=== PATIENT | female | born 1950 | race Caucasian/White ===

== ENCOUNTER 2018-10-28 06:10 | Inpatient (IN) ==
[2018-10-28] MEDS ORDERED: PROMETHAZINE 25 MG/1 ML VIAL IM PRN (08:42)
[2018-10-28] MEDS ORDERED: ONDANSETRON 4 MG/2 ML VIAL IV PRN (08:42)
[2018-10-28] MEDS ORDERED: ACETAMINOPHEN 325 MG TABLET PO PRN (08:42)
[2018-10-28] MEDS ORDERED: MORPHINE 4 MG/1 ML VIAL IV PRN (08:42)
[2018-10-28 09:09] LABS: Basophils % 0.1 % (0.0-0.8); Hematocrit 32.8 VOL% (35.7-47.0); Hemoglobin 10.9 GM/DL (12.0-16.0); Immature Granulocytes % 0.7 %; Immature Granulocytes Absolute 0.06 #; Lymphocytes # 0.8 10*3/uL (1.4-4.0); Lymphocytes % 9.4 % (21.3-54.2); Mean Corpuscular HGB Conc 33.2 GM/DL (32-36); Mean Corpuscular Hemoglobin 38 PG (27-34); Mean Corpuscular Volume 113.5 FL (87-102); Mean Platelet Volume 9.6 FL (9.6-12.0); Monocytes # 0.4 10*3/uL (0.11-0.8); Monocytes % 5.1 % (1.7-12.7); Neutrophils # 7.1 10*3/uL (1.4-7.4); Neutrophils % 84.7 % (38.7-73.9); Platelet Count 105 T/CUMM (130-400); Red Blood Count 2.89 MC/CUMM (3.8-5.5); White Blood Count 8.4 T/CUMM (4-12)
[2018-10-28 09:31] LABS: INR 1.9; PT Patient Result 20.4 SECS
[2018-10-28 09:44] LABS: Bilirubin,Total 1.7 MG/DL (0.2-1.0); Calcium 9.1 MG/DL (8.5-10.1); Osmolality,Calculated 279.4 MOS/KG (273-304); Potassium 3.9 MMOL/L (3.5-5.1); Risk Ratio 2.07; Thyroid Stimulating Hormone 0.763 uIU/ml (0.358-3.74); Total Protein 6.8 G/DL (6.4-8.3); VLDL CHOLESTEROL 11.2 MG/DL
[2018-10-28] MEDS ORDERED: SODIUM CHLORIDE 0.9% 1,000 ML IV ONE (11:20)
[2018-10-28 13:26] LABS: Folate 12.2 NG/ML (5.4-24.0)
[2018-10-28 13:37] LABS: Amorphous Crystals,Urine Occasional /HPF (Few); Apearance,Urine Slightly Hazy (Clear); Bilirubin,Urine Negative (Negative); Blood, Urine Large mg/dL (Negative); Glucose,Urine (UA) Negative (Negative); Ketones,Urine Negative (Negative); Mucus,Urine Occasional /LPF (Occasional); Nitrite,Urine Positive (Negative); Protein,Urine Negative; Urine Color Yellow (Yellow); WBC,Urine 43 /HPF (0-6)
[2018-10-28] MEDS: CYANOCOBALAMIN 1000 MCG/1 ML VIAL IM SCH (14:47)
[2018-10-28] MEDS: PANTOPRAZOLE 40 MG TABLET PO SCH (14:47)
[2018-10-28] MEDS: WARFARIN 5 MG TABLET PO SCH (14:47)
[2018-10-28] MEDS ORDERED: POLYETHYLENE GLYCOL POWDER 17 GM PACK PO PRN (14:49)
[2018-10-28] MEDS: traZODone 50 MG TABLET PO PRN (20:59)
[2018-10-29 04:51] LABS: INR 1.6; PT Patient Result 17.1 SECS
[2018-10-29 04:53] LABS: Basophils % 0.2 % (0.0-0.8); Eosinophils # 0.1 10*3/uL (0.0-0.87); Hematocrit 27.3 VOL% (35.7-47.0); Immature Granulocytes % 0.2 %; Immature Granulocytes Absolute 0.01 #; Lymphocytes # 1.9 10*3/uL (1.4-4.0); Lymphocytes % 32.8 % (21.3-54.2); Mean Corpuscular Hemoglobin 39 PG (27-34); Mean Corpuscular Volume 116.7 FL (87-102); Mean Platelet Volume 10.3 FL (9.6-12.0); Monocytes # 0.4 10*3/uL (0.11-0.8); Monocytes % 7.3 % (1.7-12.7); Neutrophils # 3.5 10*3/uL (1.4-7.4); Neutrophils % 58.5 % (38.7-73.9); Red Blood Count 2.34 MC/CUMM (3.8-5.5); Red Cell Distribution Width 14.4 % (9.3-17.3); White Blood Count 5.9 T/CUMM (4-12)
[2018-10-29 04:57] LABS: Platelet Count 98 T/CUMM (130-400)
[2018-10-29 05:12] LABS: Albumin 2.5 G/DL (3.4-5.0); Bilirubin,Total 1.2 MG/DL (0.2-1.0); Calcium 8.4 MG/DL (8.5-10.1); Osmolality,Calculated 285.8 MOS/KG (273-304); Potassium 4.2 MMOL/L (3.5-5.1); Total Protein 5.9 G/DL (6.4-8.3)
[2018-10-29] MEDS ORDERED: LEVOFLOXACIN INJ 500 MG in PREMIX 1 EACH IV ONE (07:20)
[2018-10-29] MEDS ORDERED: Ibandronate Sodium [Boniva] 150 MG PO SCH (09:00)
[2018-10-29] MEDS: PANTOPRAZOLE 40 MG TABLET PO SCH (09:01)
[2018-10-29] MEDS: METOPROLOL SUCCINATE XL 50 MG TABLET PO SCH (09:01)
[2018-10-29] MEDS: ASPIRIN EC 81 MG TABLET PO SCH (09:01)
[2018-10-29] MEDS: SIMVASTATIN 40 MG TABLET PO SCH (09:01)
[2018-10-29] MEDS: FUROSEMIDE 40 MG TABLET PO SCH (09:01)
[2018-10-29] MEDS: POTASSIUM CHLORIDE 20 MEQ TABLET PO SCH (09:02)
[2018-10-29] MEDS: CYANOCOBALAMIN 1000 MCG/1 ML VIAL IM SCH (09:04)
[2018-10-29] MEDS: WARFARIN 5 MG TABLET PO SCH (13:08)
[2018-10-29] MEDS: PIPERACILLIN/TAZOBACTAM 3,375 MG in SODIUM CHLORIDE 0.9% 100 ML IV SCH ×2 (13:08→21:22)
[2018-10-29] MEDS: ENOXAPARIN 80 MG/0.8 ML SYRINGE SUBCUT SCH ×2 (13:08→21:29)
[2018-10-29] MEDS: traZODone 50 MG TABLET PO PRN (21:21)
[2018-10-30] MEDS: PIPERACILLIN/TAZOBACTAM 3,375 MG in SODIUM CHLORIDE 0.9% 100 ML IV SCH (05:05)
[2018-10-30] MEDS: POTASSIUM CHLORIDE 20 MEQ TABLET PO SCH (08:40)
[2018-10-30] MEDS: FUROSEMIDE 40 MG TABLET PO SCH (08:41)
[2018-10-30] MEDS: METOPROLOL SUCCINATE XL 50 MG TABLET PO SCH (08:41)
[2018-10-30] MEDS: ASPIRIN EC 81 MG TABLET PO SCH (08:41)
[2018-10-30] MEDS: PANTOPRAZOLE 40 MG TABLET PO SCH (08:41)
[2018-10-30] MEDS: SIMVASTATIN 40 MG TABLET PO SCH (08:41)
[2018-10-30] MEDS: CYANOCOBALAMIN 1000 MCG/1 ML VIAL IM SCH (08:51)
[2018-10-30] MEDS: ENOXAPARIN 80 MG/0.8 ML SYRINGE SUBCUT SCH (10:52)
[2018-10-30] MEDS: WARFARIN 5 MG TABLET PO SCH (12:20)
[2018-10-30 12:31] VITALS: BP 115/63
[2018-10-31] MEDS ORDERED: WARFARIN 5 MG TABLET PO SCH (12:33)
== END 2018-10-30 12:38 | disposition home or self-care (01) | DRG 872 ==
LOC: N.TELEN 08:24 → SUATTDRO 08:24
PROVIDERS: ADMIT Internal Medicine; ATTEND Internal Medicine

== ENCOUNTER 2021-12-26 23:58 | Observation (INO) ==
[2021-12-27] MEDS ORDERED: DILTIAZEM 50 MG/10 ML VIAL IV STA (00:26)
[2021-12-27] MEDS ORDERED: SODIUM CHLORIDE 0.9% 500 ML IV STA (00:26)
[2021-12-27] MEDS ORDERED: DILTIAZEM 25 MG/5 ML VIAL IV ONE (00:35)
[2021-12-27 00:43] LABS: Bacteria,Urine Many /HPF (Few); Mucus,Urine Occasional /LPF (Occasional); Squamous Epithelial Cell,Urine Occasional /HPF (0-10)
[2021-12-27 00:45] LABS: Bilirubin,Urine Negative (Negative); Glucose,Urine (UA) Negative (Negative); Ketones,Urine Negative (Negative); Nitrite,Urine Positive (Negative); Protein,Urine Trace mg/dL (Negative); Urine Appearance Slightly Cloudy (Clear); Urine Color Yellow (Yellow); Urine Specific Gravity 1.015 (1.001-1.035)
[2021-12-27 00:46] LABS: Basophils % 0.1 % (0.0-0.8); Eosinophils % 0.3 % (0.00-10.9); Hematocrit 34.5 VOL% (35.7-47.0); Hemoglobin 12.1 GM/DL (12.0-16.0); Immature Granulocytes % 0.3 %; Immature Granulocytes Absolute 0.02 #; Lymphocytes # 0.6 10*3/uL (1.4-4.0); Lymphocytes % 8.8 % (21.3-54.2); Mean Corpuscular HGB Conc 35.1 GM/DL (32-36); Mean Corpuscular Volume 118.2 FL (87-102); Monocytes # 0.2 10*3/uL (0.11-0.8); Monocytes % 2.9 % (1.7-12.7); Neutrophils % 87.6 % (38.7-73.9); Platelet Count 126 T/CUMM (130-400); Red Blood Count 2.92 MC/CUMM (3.8-5.5); Red Cell Distribution Width 13.8 % (9.3-17.3); White Blood Count 6.8 T/CUMM (4-12)
[2021-12-27 00:46] LABS: Blood, Urine Small mg/dL (Negative); Urine Urobilinogen 0.3 eU/dL (<2.0)
[2021-12-27 00:59] LABS: INR 2.7
[2021-12-27 01:11] LABS: Alanine Aminotransferase 12 U/L (13-56); Albumin 3.3 G/DL (3.4-5.0); Alkaline Phosphatase 93 U/L (45-117); Aspartate Amino Transferase 23 U/L (0-37); Blood Urea Nitrogen 11 MG/DL (7-18); Calcium 9.1 MG/DL (8.5-10.1); Carbon Dioxide 24 MMOL/L (21-32); Chloride 107 MMOL/L (98-107); Estimated Glom Filtration Rate 69 ML/MIN; Glucose 142 MG/DL (74-106); Osmolality,Calculated 275.7 MOS/KG (273-304); Potassium 3.4 MMOL/L (3.5-5.1); Sodium 138 MMOL/L (136-145); Total Protein 7.2 G/DL (6.4-8.2)
[2021-12-27 01:12] LABS: Lactic Acid 1.7 MMOL/L (0.4-2.0)
[2021-12-27] MEDS ORDERED: DOXYCYCLINE HYCLATE INJ 100 MG in SODIUM CHLORIDE 0.9% 100 ML IV STA (01:21)
[2021-12-27 01:40] LABS: Platelet Estimate Decreased
[2021-12-27] MEDS ORDERED: hydrALAZINE 20 MG/1 ML VIAL IV PRN (02:06)
[2021-12-27] MEDS ORDERED: ACETAMINOPHEN 325 MG TABLET PO PRN (02:06)
[2021-12-27] MEDS ORDERED: ONDANSETRON 4 MG/2 ML VIAL IV PRN (02:06)
[2021-12-27] MEDS ORDERED: GLUCAGON 1 MG VIAL IM PRN (02:06)
[2021-12-27] MEDS ORDERED: DEXTROSE 10% 250 ML BAG IV PRN (02:16)
[2021-12-27] MEDS ORDERED: POTASSIUM CHLORIDE 20 MEQ TABLET PO ONE (02:20)
[2021-12-27] MEDS: METOPROLOL SUCCINATE XL 25 MG TABLET PO SCH ×2 (03:15→09:26)
[2021-12-27] MEDS ORDERED: FUROSEMIDE 40 MG/4 ML VIAL IV ONE (07:09)
[2021-12-27 09:17] LABS: Arterial Base Excess iSTAT -1 MMOL/L (-2.5-2.5); Arterial Bicarbonate iSTAT 23.6 MMOL/L (20-26); Arterial O2 Saturation iSTAT 99 % (95-100); Arterial PCO2 iSTAT 36 MM HG (35-48); Arterial PO2 iSTAT 128 MM HG (80-95); Arterial Total CO2 iSTAT 25 MMO/L (23-27); Arterial pH iSTAT 7.422 (7.35-7.45)
[2021-12-27] MEDS: ASPIRIN EC 81 MG TABLET PO SCH (09:26)
[2021-12-27] MEDS: PANTOPRAZOLE 40 MG TABLET PO SCH (09:26)
[2021-12-27] MEDS ORDERED: DOXYCYCLINE HYCLATE INJ 100 MG in SODIUM CHLORIDE 0.9% 100 ML IV SCH (13:00)
[2021-12-27] MEDS: DOXYCYCLINE HYCLATE 100 MG CAPSULE PO SCH ×2 (14:14→20:53)
[2021-12-27] MEDS ORDERED: SIMVASTATIN 20 MG TABLET PO SCH (21:00)
[2021-12-28 06:02] LABS: Basophils % 0.2 % (0.0-0.8); Eosinophils # 0.1 10*3/uL (0.0-0.87); Eosinophils % 1.2 % (0.00-10.9); Hematocrit 29.1 VOL% (35.7-47.0); Hemoglobin 9.8 GM/DL (12.0-16.0); Immature Granulocytes % 0.4 %; Immature Granulocytes Absolute 0.02 #; Mean Corpuscular HGB Conc 33.7 GM/DL (32-36); Mean Corpuscular Volume 121.3 FL (87-102); Mean Platelet Volume 10.2 FL (9.6-12.0); Monocytes # 0.5 10*3/uL (0.11-0.8); Monocytes % 9.1 % (1.7-12.7); Neutrophils % 49.1 % (38.7-73.9); Platelet Count 99 T/CUMM (130-400); Red Cell Distribution Width 13.9 % (9.3-17.3)
[2021-12-28 06:15] LABS: Calcium 8.8 MG/DL (8.5-10.1); Osmolality,Calculated 277.5 MOS/KG (273-304); Potassium 3.9 MMOL/L (3.5-5.1)
[2021-12-28 06:25] LABS: Macrocytosis 1+
[2021-12-28 07:35] VITALS: BP 133/44
[2021-12-28] MEDS: ASPIRIN EC 81 MG TABLET PO SCH (08:09)
[2021-12-28] MEDS: PANTOPRAZOLE 40 MG TABLET PO SCH (08:09)
[2021-12-28] MEDS: METOPROLOL SUCCINATE XL 25 MG TABLET PO SCH (08:09)
[2021-12-28] MEDS: DOXYCYCLINE HYCLATE 100 MG CAPSULE PO SCH (08:09)
[2021-12-28] MEDS ORDERED: WARFARIN 5 MG TABLET PO SCH (09:00)
[2021-12-28] MEDS ORDERED: CYANOCOBALAMIN 1000 MCG/1 ML VIAL SUBCUT SCH (11:00)
[2021-12-31] MEDS ORDERED: WARFARIN 2.5 MG TABLET PO SCH (09:00)
== END 2021-12-28 11:26 | disposition home or self-care (01) ==
LOC: EDUNIT# → EDBD → N.EDINP 23:58 → N.ED 23:58 → N.EDINP 12-27 12:42 → N.5E 12-27 12:56
PROVIDERS: ADMIT Internal Medicine Geriatric Medicine; ATTEND Internal Medicine Geriatric Medicine

== ENCOUNTER 2022-01-10 12:29 | Inpatient (IN) ==
[2022-01-10] MEDS ORDERED: ASPIRIN 325 MG TABLET PO STA (13:34)
[2022-01-10] MEDS ORDERED: DILTIAZEM 50 MG/10 ML VIAL IV STA (13:34)
[2022-01-10 13:39] LABS: Basophils % 0.3 % (0.0-0.8); Eosinophils # 0.1 10*3/uL (0.0-0.87); Eosinophils % 1.7 % (0.00-10.9); Hematocrit 20.9 VOL% (35.7-47.0); Hemoglobin 6.9 GM/DL (12.0-16.0); Immature Granulocytes % 0.3 %; Immature Granulocytes Absolute 0.01 #; Lymphocytes # 1.4 10*3/uL (1.4-4.0); Lymphocytes % 47.3 % (21.3-54.2); Mean Corpuscular Volume 123.7 FL (87-102); Mean Platelet Volume 9.2 FL (9.6-12.0); Monocytes # 0.1 10*3/uL (0.11-0.8); Monocytes % 3.7 % (1.7-12.7); Neutrophils % 46.7 % (38.7-73.9); Platelet Count 87 T/CUMM (130-400); Red Blood Count 1.69 MC/CUMM (3.8-5.5); Red Cell Distribution Width 13.4 % (9.3-17.3)
[2022-01-10 14:06] LABS: Burr Cells Slight; Ovalocytes Few
[2022-01-10 14:07] LABS: Polychromasia Slight
[2022-01-10] MEDS ORDERED: DILTIAZEM 25 MG/5 ML VIAL IV ONE (14:07)
[2022-01-10 14:08] LABS: Anisocytosis Slight; Platelet Estimate Adequate
[2022-01-10] MEDS ORDERED: FUROSEMIDE 40 MG/4 ML VIAL IV STA (14:16)
[2022-01-10 15:13] LABS: Alanine Aminotransferase < 9 U/L (13-56); Albumin 1.5 G/DL (3.4-5.0); Alkaline Phosphatase 36 U/L (45-117); Aspartate Amino Transferase 9 U/L (0-37); Bilirubin,Total < 0.39 MG/DL (0.20-1.00); Blood Urea Nitrogen 4 MG/DL (7-18); Calcium 8.5 MG/DL (8.5-10.1); Carbon Dioxide 15 MMOL/L (21-32); Chloride 131 MMOL/L (98-107); Estimated Glom Filtration Rate 86 ML/MIN; Glucose 53 MG/DL (74-106); Osmolality,Calculated 294.7 MOS/KG (273-304); Sodium 152 MMOL/L (136-145)
[2022-01-10] MEDS ORDERED: POTASSIUM CHLORIDE 20 MEQ TABLET PO STA (15:22)
[2022-01-10] MEDS ORDERED: hydrALAZINE 20 MG/1 ML VIAL IV PRN (15:47)
[2022-01-10] MEDS ORDERED: MORPHINE 2 MG/1 ML SYRINGE IV PRN (15:47)
[2022-01-10] MEDS ORDERED: GLUCAGON 1 MG VIAL IM PRN (15:47)
[2022-01-10] MEDS ORDERED: ONDANSETRON 4 MG/2 ML VIAL IV PRN (15:47)
[2022-01-10] MEDS ORDERED: DEXTROSE 10% 250 ML BAG IV PRN (15:57)
[2022-01-10] MEDS ORDERED: POTASSIUM CHLORIDE 20 MEQ TABLET PO SCH (16:00)
[2022-01-10] MEDS ORDERED: SODIUM CHLOR 0.9% KCL 40 MEQ 40 MEQ/1,000 ML BAG IV SCH (16:00)
[2022-01-10 16:10] LABS: INR 2.6; PT Patient Result 26.6 SECS (10.5-12.0)
[2022-01-10 16:15] LABS: Risk Ratio 2.25; Thyroid Stimulating Hormone 2.54 uIU/ml (0.358-3.74); VLDL Cholesterol 24.2 MG/DL
[2022-01-10 16:22] LABS: % Iron Saturation 22.3 % (18-50); Ferritin 207.8 ng/mL (8-252)
[2022-01-10] MEDS ORDERED: DEXTROSE 5% 1,000 ML IV SCH (17:00)
[2022-01-10 17:03] LABS: Basophils % 0.2 % (0.0-0.8); Eosinophils # 0.1 10*3/uL (0.0-0.87); Eosinophils % 1.3 % (0.00-10.9); Hematocrit 36.8 VOL% (35.7-47.0); Hemoglobin 12.3 GM/DL (12.0-16.0); Immature Granulocytes % 0.2 %; Immature Granulocytes Absolute 0.01 #; Lymphocytes # 2.3 10*3/uL (1.4-4.0); Lymphocytes % 42.7 % (21.3-54.2); Mean Corpuscular HGB Conc 33.4 GM/DL (32-36); Mean Corpuscular Volume 118.7 FL (87-102); Monocytes # 0.2 10*3/uL (0.11-0.8); Monocytes % 3.8 % (1.7-12.7); Neutrophils % 51.8 % (38.7-73.9); Platelet Count 147 T/CUMM (130-400); Red Cell Distribution Width 13.4 % (9.3-17.3); White Blood Count 5.3 T/CUMM (4-12)
[2022-01-10 18:09] LABS: Ovalocytes Few; Platelet Estimate Normal
[2022-01-10 20:18] LABS: Calcium 9.1 MG/DL (8.5-10.1); Osmolality,Calculated 281.1 MOS/KG (273-304); Potassium 4.7 MMOL/L (3.5-5.1)
[2022-01-10] MEDS: SIMVASTATIN 20 MG TABLET PO SCH (20:20)
[2022-01-10] MEDS: GABAPENTIN 100 MG CAPSULE PO SCH (20:20)
[2022-01-10] MEDS: MUPIROCIN 2% OINT 22 GM TUBE TOP SCH (20:21)
[2022-01-10] MEDS: ACETAMINOPHEN 325 MG TABLET PO PRN (21:16)
[2022-01-11 05:33] LABS: Basophils % 0.5 % (0.0-0.8); Eosinophils # 0.1 10*3/uL (0.0-0.87); Eosinophils % 1.9 % (0.00-10.9); Hematocrit 34.9 VOL% (35.7-47.0); Hemoglobin 11.9 GM/DL (12.0-16.0); Immature Granulocytes % 0.2 %; Immature Granulocytes Absolute 0.01 #; Lymphocytes % 47.2 % (21.3-54.2); Mean Corpuscular HGB Conc 34.1 GM/DL (32-36); Mean Corpuscular Volume 118.3 FL (87-102); Mean Platelet Volume 10.1 FL (9.6-12.0); Monocytes # 0.2 10*3/uL (0.11-0.8); Monocytes % 4.9 % (1.7-12.7); Neutrophils % 45.3 % (38.7-73.9); Platelet Count 126 T/CUMM (130-400); Red Blood Count 2.95 MC/CUMM (3.8-5.5); Red Cell Distribution Width 13.2 % (9.3-17.3); White Blood Count 4.3 T/CUMM (4-12)
[2022-01-11 05:48] LABS: Calcium 9.2 MG/DL (8.5-10.1); Osmolality,Calculated 279.3 MOS/KG (273-304); Potassium 4.1 MMOL/L (3.5-5.1)
[2022-01-11] MEDS ORDERED: DIGOXIN 0.5 MG/2 ML AMP IV ONE (09:22)
[2022-01-11] MEDS ORDERED: FUROSEMIDE 40 MG/4 ML VIAL IV ONE (09:32)
[2022-01-11] MEDS: PANTOPRAZOLE 40 MG TABLET PO SCH (10:00)
[2022-01-11] MEDS: WARFARIN 5 MG TABLET PO SCH (10:00)
[2022-01-11] MEDS: METOPROLOL SUCCINATE XL 25 MG TABLET PO SCH (10:00)
[2022-01-11 13:45] LABS: Basophils % 0.2 % (0.0-0.8); Eosinophils # 0.1 10*3/uL (0.0-0.87); Eosinophils % 1.2 % (0.00-10.9); Hematocrit 34.9 VOL% (35.7-47.0); Hemoglobin 12.1 GM/DL (12.0-16.0); Immature Granulocytes % 0.2 %; Immature Granulocytes Absolute 0.01 #; Lymphocytes # 1.7 10*3/uL (1.4-4.0); Mean Corpuscular HGB Conc 34.7 GM/DL (32-36); Mean Corpuscular Volume 117.1 FL (87-102); Mean Platelet Volume 10.4 FL (9.6-12.0); Monocytes # 0.2 10*3/uL (0.11-0.8); Monocytes % 4.7 % (1.7-12.7); Neutrophils % 59.7 % (38.7-73.9); Platelet Count 144 T/CUMM (130-400); Red Blood Count 2.98 MC/CUMM (3.8-5.5); Red Cell Distribution Width 13.2 % (9.3-17.3); White Blood Count 5.1 T/CUMM (4-12)
[2022-01-11] MEDS: MUPIROCIN 2% OINT 22 GM TUBE TOP SCH ×2 (13:48→21:45)
[2022-01-11 14:00] LABS: Osmolality,Calculated 276.5 MOS/KG (273-304); Potassium 4.1 MMOL/L (3.5-5.1)
[2022-01-11] MEDS: ACETAMINOPHEN 325 MG TABLET PO PRN (18:41)
[2022-01-11] MEDS: SIMVASTATIN 20 MG TABLET PO SCH (20:48)
[2022-01-11] MEDS: GABAPENTIN 100 MG CAPSULE PO SCH (20:48)
[2022-01-12 04:51] LABS: Basophils % 0.2 % (0.0-0.8); Eosinophils # 0.1 10*3/uL (0.0-0.87); Eosinophils % 1.6 % (0.00-10.9); Hematocrit 36.2 VOL% (35.7-47.0); Hemoglobin 12.4 GM/DL (12.0-16.0); Immature Granulocytes % 0.2 %; Immature Granulocytes Absolute 0.01 #; Lymphocytes # 2.3 10*3/uL (1.4-4.0); Lymphocytes % 45.5 % (21.3-54.2); Mean Corpuscular HGB Conc 34.3 GM/DL (32-36); Mean Corpuscular Volume 116.8 FL (87-102); Mean Platelet Volume 9.8 FL (9.6-12.0); Monocytes # 0.3 10*3/uL (0.11-0.8); Monocytes % 5.8 % (1.7-12.7); Neutrophils % 46.7 % (38.7-73.9); Platelet Count 142 T/CUMM (130-400)
[2022-01-12 05:10] LABS: Calcium 9.3 MG/DL (8.5-10.1); Osmolality,Calculated 275.5 MOS/KG (273-304); Potassium 4.9 MMOL/L (3.5-5.1)
[2022-01-12] MEDS ORDERED: AMIODARONE INJ 150 MG in DEXTROSE 5% 100 ML IV ONE (08:08)
[2022-01-12] MEDS ORDERED: AMIODARONE INJ 450 MG in DEXTROSE 5% 241 ML IV SCH (08:30)
[2022-01-12] MEDS: WARFARIN 5 MG TABLET PO SCH (09:20)
[2022-01-12] MEDS: PANTOPRAZOLE 40 MG TABLET PO SCH (09:20)
[2022-01-12] MEDS: METOPROLOL SUCCINATE XL 25 MG TABLET PO SCH (09:20)
[2022-01-12] MEDS: MUPIROCIN 2% OINT 22 GM TUBE TOP SCH ×2 (09:28→21:17)
[2022-01-12 13:25] LABS: INR 2.1; PT Patient Result 21.9 SECS (10.5-12.0)
[2022-01-12] MEDS: FUROSEMIDE 40 MG TABLET PO SCH (17:07)
[2022-01-12] MEDS: AMIODARONE INJ 450 MG in DEXTROSE 5% 241 ML IV SCH (17:08)
[2022-01-12] MEDS: ACETAMINOPHEN 325 MG TABLET PO PRN (21:17)
[2022-01-12] MEDS: SIMVASTATIN 20 MG TABLET PO SCH (21:17)
[2022-01-12] MEDS: GABAPENTIN 100 MG CAPSULE PO SCH (21:17)
[2022-01-13 06:19] LABS: Basophils % 0.2 % (0.0-0.8); Eosinophils # 0.1 10*3/uL (0.0-0.87); Eosinophils % 2.5 % (0.00-10.9); Hematocrit 33.8 VOL% (35.7-47.0); Hemoglobin 11.6 GM/DL (12.0-16.0); Immature Granulocytes % 0.2 %; Immature Granulocytes Absolute 0.01 #; Lymphocytes # 2.1 10*3/uL (1.4-4.0); Lymphocytes % 45.1 % (21.3-54.2); Mean Corpuscular HGB Conc 34.3 GM/DL (32-36); Mean Platelet Volume 10.1 FL (9.6-12.0); Monocytes # 0.3 10*3/uL (0.11-0.8); Monocytes % 7.2 % (1.7-12.7); Neutrophils % 44.8 % (38.7-73.9); Platelet Count 133 T/CUMM (130-400); Red Blood Count 2.89 MC/CUMM (3.8-5.5); White Blood Count 4.7 T/CUMM (4-12)
[2022-01-13 06:25] LABS: INR 2.2; PT Patient Result 23.1 SECS (10.5-12.0)
[2022-01-13 06:34] LABS: Calcium 9.1 MG/DL (8.5-10.1); Osmolality,Calculated 279.3 MOS/KG (273-304); Potassium 3.2 MMOL/L (3.5-5.1)
[2022-01-13] MEDS ORDERED: POTASSIUM CHLORIDE 20 MEQ TABLET PO ONE (07:08)
[2022-01-13] MEDS: AMIODARONE INJ 450 MG in DEXTROSE 5% 241 ML IV SCH (08:34)
[2022-01-13] MEDS ORDERED: ASCORBIC ACID 500 MG TABLET PO SCH (09:00)
[2022-01-13] MEDS ORDERED: AMIODARONE 200 MG TABLET PO SCH (09:00)
[2022-01-13] MEDS: WARFARIN 5 MG TABLET PO SCH (09:02)
[2022-01-13] MEDS: PANTOPRAZOLE 40 MG TABLET PO SCH (09:03)
[2022-01-13] MEDS: FUROSEMIDE 40 MG TABLET PO SCH (09:03)
[2022-01-13] MEDS: METOPROLOL SUCCINATE XL 25 MG TABLET PO SCH (09:03)
[2022-01-13] MEDS: MUPIROCIN 2% OINT 22 GM TUBE TOP SCH (09:05)
[2022-01-13 11:45] VITALS: BP 133/74
[2022-01-14] MEDS ORDERED: WARFARIN 2.5 MG TABLET PO SCH (09:00)
== END 2022-01-13 16:14 | disposition home or self-care (01) | DRG 308 ==
LOC: EDBD → EDUNIT# → N.ED 12:29 → N.EDINP 15:47 → SUATTDRO 15:47 → N.EDINP 19:22 → N.TELES 19:30
PROVIDERS: ADMIT Internal Medicine; ATTEND Internal Medicine

== ENCOUNTER 2022-06-29 15:31 | Inpatient (IN) ==
[2022-06-29] MEDS ORDERED: ONDANSETRON 4 MG/2 ML VIAL IV STA (15:55)
[2022-06-29] MEDS ORDERED: HYDROmorphone 1 MG/1 ML SYRINGE IV STA (15:55)
[2022-06-29 16:43] LABS: Eosinophils % 0.7 % (0.00-10.9); Hematocrit 28.8 VOL% (35.7-47.0); Hemoglobin 9.8 GM/DL (12.0-16.0); Immature Granulocytes % 0.7 %; Immature Granulocytes Absolute 0.04 #; Lymphocytes # 1.4 10*3/uL (1.4-4.0); Lymphocytes % 24.1 % (21.3-54.2); Mean Corpuscular Volume 116.6 FL (87-102); Monocytes # 0.4 10*3/uL (0.11-0.8); Monocytes % 6.1 % (1.7-12.7); NRBC # 0.02 10*3/uL; Neutrophils % 68.4 % (38.7-73.9); Platelet Count 143 T/CUMM (130-400); Red Blood Count 2.47 MC/CUMM (3.8-5.5); Red Cell Distribution Width 15.6 % (9.3-17.3); White Blood Count 5.7 T/CUMM (4-12)
[2022-06-29 16:54] LABS: INR 2.3; PT Patient Result 23.6 SECS (10.1-12.1); Partial Thromboplastin Time 32.8 SECS (23.7-32.9)
[2022-06-29] MEDS ORDERED: ONDANSETRON 4 MG/2 ML VIAL IV PRN (16:58)
[2022-06-29 17:05] LABS: Albumin 2.7 G/DL (3.4-5.0); Bilirubin,Total 0.6 MG/DL (0.20-1.00); Osmolality,Calculated 280.4 MOS/KG (273-304); Potassium 3.7 MMOL/L (3.5-5.1); Total Protein 6.2 G/DL (6.4-8.2)
[2022-06-29] MEDS ORDERED: SODIUM CHLORIDE 0.9% 1,000 ML IV PRN (17:07)
[2022-06-29] MEDS ORDERED: SODIUM CHLORIDE 0.9% 1,000 ML IV SCH (17:30)
[2022-06-29 17:31] LABS: Bilirubin,Urine Negative (Negative); Blood, Urine Negative (Negative); Glucose,Urine (UA) Negative (Negative); Ketones,Urine Negative (Negative); Mucus,Urine Occasional /LPF (Occasional); Nitrite,Urine Negative (Negative); Protein,Urine Negative (Negative); RBC,Urine 1 /HPF (0-4); Urine Appearance CLEAR (Clear); Urine Color Yellow (Yellow); Urine Specific Gravity 1.018 (1.001-1.035); Urine Urobilinogen < 2.0 eU/dL (<2.0)
[2022-06-29] MEDS: ENOXAPARIN 100 MG/ML SYRINGE SUBCUT SCH (17:38)
[2022-06-29] MEDS: MORPHINE 2 MG/1 ML SYRINGE IV PRN ×2 (19:03→22:47)
[2022-06-29] MEDS: GABAPENTIN 100 MG CAPSULE PO SCH (20:48)
[2022-06-29] MEDS: AMIODARONE 200 MG TABLET PO SCH (20:48)
[2022-06-30] MEDS: MORPHINE 2 MG/1 ML SYRINGE IV PRN ×3 (04:52→17:07)
[2022-06-30] MEDS ORDERED: CLINDAMYCIN INJ 900 MG/50 ML PREMIX IV ONE (06:37)
[2022-06-30 07:20] LABS: Basophils % 0.2 % (0.0-0.8); Eosinophils # 0.1 10*3/uL (0.0-0.87); Eosinophils % 1.1 % (0.00-10.9); Hematocrit 22.5 VOL% (35.7-47.0); Immature Granulocytes % 0.7 %; Immature Granulocytes Absolute 0.03 #; Lymphocytes # 1.3 10*3/uL (1.4-4.0); Lymphocytes % 30.1 % (21.3-54.2); Mean Corpuscular HGB Conc 33.3 GM/DL (32-36); Mean Corpuscular Volume 119.7 FL (87-102); Mean Platelet Volume 9.6 FL (9.6-12.0); Monocytes # 0.4 10*3/uL (0.11-0.8); Monocytes % 8.4 % (1.7-12.7); Neutrophils % 59.5 % (38.7-73.9); Platelet Count 118 T/CUMM (130-400); Red Cell Distribution Width 15.9 % (9.3-17.3); White Blood Count 4.4 T/CUMM (4-12)
[2022-06-30 07:20] LABS: Albumin 2.5 G/DL (3.4-5.0); Bilirubin,Total 0.6 MG/DL (0.20-1.00); Calcium 8.6 MG/DL (8.5-10.1); Osmolality,Calculated 281.3 MOS/KG (273-304); Potassium 4.3 MMOL/L (3.5-5.1); Total Protein 5.8 G/DL (6.4-8.2)
[2022-06-30 07:23] LABS: Hemoglobin 7.5 GM/DL (12.0-16.0); Red Blood Count 1.88 MC/CUMM (3.8-5.5)
[2022-06-30 07:29] LABS: PT Patient Result 21.3 SECS (10.1-12.1)
[2022-06-30] MEDS: AMIODARONE 200 MG TABLET PO SCH ×2 (08:06→20:52)
[2022-06-30] MEDS: METOPROLOL SUCCINATE XL 50 MG TABLET PO SCH (08:06)
[2022-06-30] MEDS: CYANOCOBALAMIN 500 MCG TABLET PO SCH (08:06)
[2022-06-30] MEDS ORDERED: MIDAZOLAM 2 MG/2 ML VIAL ONE (10:24)
[2022-06-30] MEDS ORDERED: fentaNYL 100 MCG/2 ML VIAL ONE (10:24)
[2022-06-30] MEDS ORDERED: LACTATED RINGERS 1,000 ML IV SCH (11:00)
[2022-06-30] MEDS ORDERED: SEVOFLURANE 1 UNIT/15 MINUTE INH ONE (11:03)
[2022-06-30] MEDS ORDERED: ONDANSETRON 4 MG/2 ML VIAL ONE (11:03)
[2022-06-30] MEDS ORDERED: ETOMIDATE 40 MG/20 ML VIAL IV ONE (11:03)
[2022-06-30] MEDS ORDERED: propofoL 200 MG/20 ML VIAL IV ONE (11:03)
[2022-06-30] MEDS ORDERED: SODIUM CHLORIDE 0.9% 1,000 ML IV PRN (12:08)
[2022-06-30] MEDS ORDERED: MORPHINE 2 MG/1 ML SYRINGE IV PRN (12:41)
[2022-06-30] MEDS ORDERED: MAGNESIUM HYDROXIDE SUSP 30 ML UDCUP PO PRN (12:41)
[2022-06-30] MEDS ORDERED: ONDANSETRON 4 MG/2 ML VIAL IV PRN (13:19)
[2022-06-30] MEDS ORDERED: MEPERIDINE 50 MG/1 ML VIAL ONE (13:21)
[2022-06-30] MEDS: MEPERIDINE 25 MG/1 ML VIAL IV PRN (13:22)
[2022-06-30] MEDS: LACTATED RINGERS 1,000 ML IV SCH (15:05)
[2022-06-30] MEDS: WARFARIN 2.5 MG TABLET PO SCH (17:07)
[2022-06-30] MEDS: GABAPENTIN 100 MG CAPSULE PO SCH (20:52)
[2022-06-30] MEDS: DOCUSATE SODIUM 100 MG CAPSULE PO SCH (20:52)
[2022-06-30] MEDS: CLINDAMYCIN INJ 900 MG/50 ML PREMIX IV SCH (21:00)
[2022-07-01] MEDS: CLINDAMYCIN INJ 900 MG/50 ML PREMIX IV SCH (04:16)
[2022-07-01 05:35] LABS: INR 2.5; PT Patient Result 25.5 SECS (10.1-12.1)
[2022-07-01 05:43] LABS: Calcium 8.2 MG/DL (8.5-10.1); Osmolality,Calculated 280.3 MOS/KG (273-304)
[2022-07-01] MEDS: LACTATED RINGERS 1,000 ML IV SCH ×2 (05:46→10:58)
[2022-07-01 06:05] LABS: Basophils % 0.2 % (0.0-0.8); Eosinophils % 0.3 % (0.00-10.9); Hematocrit 18.8 VOL% (35.7-47.0); Immature Granulocytes % 0.5 %; Immature Granulocytes Absolute 0.03 #; Lymphocytes # 1.1 10*3/uL (1.4-4.0); Lymphocytes % 16.4 % (21.3-54.2); Mean Corpuscular HGB Conc 33.5 GM/DL (32-36); Mean Corpuscular Volume 119.7 FL (87-102); Mean Platelet Volume 10.3 FL (9.6-12.0); Monocytes # 0.6 10*3/uL (0.11-0.8); Monocytes % 8.7 % (1.7-12.7); NRBC # 0.02 10*3/uL; Neutrophils % 73.9 % (38.7-73.9); Platelet Count 104 T/CUMM (130-400); Red Blood Count 1.57 MC/CUMM (3.8-5.5); Red Cell Distribution Width 16.1 % (9.3-17.3); White Blood Count 6.5 T/CUMM (4-12)
[2022-07-01 06:15] LABS: Hemoglobin 6.3 GM/DL (12.0-16.0)
[2022-07-01] MEDS ORDERED: SODIUM CHLORIDE 0.9% 1,000 ML IV PRN (06:19)
[2022-07-01 06:29] LABS: Band Neutrophils 3 % (0-10); Lymphocytes 11 % (20-55); Total Cells Counted 100
[2022-07-01 06:30] LABS: Anisocytosis 1+; Macrocytosis 1+
[2022-07-01 06:31] LABS: Ovalocytes Slight; Platelet Estimate Adequate
[2022-07-01] MEDS: AMIODARONE 200 MG TABLET PO SCH ×2 (09:23→20:49)
[2022-07-01] MEDS: CYANOCOBALAMIN 500 MCG TABLET PO SCH (09:23)
[2022-07-01] MEDS: DOCUSATE SODIUM 100 MG CAPSULE PO SCH ×2 (09:24→20:49)
[2022-07-01] MEDS: METOPROLOL SUCCINATE XL 50 MG TABLET PO SCH (09:24)
[2022-07-01 15:56] LABS: Hemoglobin 9.5 GM/DL (12.0-16.0)
[2022-07-01] MEDS: ENOXAPARIN 100 MG/ML SYRINGE SUBCUT SCH (17:51)
[2022-07-01] MEDS: WARFARIN 2.5 MG TABLET PO SCH (17:52)
[2022-07-01] MEDS: GABAPENTIN 100 MG CAPSULE PO SCH (20:49)
[2022-07-02] MEDS: LACTATED RINGERS 1,000 ML IV SCH ×2 (00:21→10:32)
[2022-07-02 05:21] LABS: Calcium 8.2 MG/DL (8.5-10.1); Osmolality,Calculated 281.4 MOS/KG (273-304)
[2022-07-02 06:48] LABS: Basophils % 0.1 % (0.0-0.8); Eosinophils # 0.1 10*3/uL (0.0-0.87); Hematocrit 26.8 VOL% (35.7-47.0); Immature Granulocytes % 0.6 %; Immature Granulocytes Absolute 0.04 #; Lymphocytes # 1.5 10*3/uL (1.4-4.0); Lymphocytes % 20.8 % (21.3-54.2); Mean Corpuscular HGB Conc 33.6 GM/DL (32-36); Mean Corpuscular Volume 105.9 FL (87-102); Mean Platelet Volume 10.2 FL (9.6-12.0); Monocytes # 0.6 10*3/uL (0.11-0.8); Monocytes % 7.9 % (1.7-12.7); Neutrophils % 69.6 % (38.7-73.9); Platelet Count 108 T/CUMM (130-400); Red Blood Count 2.53 MC/CUMM (3.8-5.5); Red Cell Distribution Width 23.3 % (9.3-17.3); White Blood Count 7.1 T/CUMM (4-12)
[2022-07-02 07:11] LABS: PT Patient Result 50.5 SECS (10.1-12.1)
[2022-07-02 07:16] LABS: INR 5.1
[2022-07-02] MEDS: METOPROLOL SUCCINATE XL 50 MG TABLET PO SCH (09:40)
[2022-07-02] MEDS: DOCUSATE SODIUM 100 MG CAPSULE PO SCH ×2 (09:40→20:35)
[2022-07-02] MEDS: CYANOCOBALAMIN 500 MCG TABLET PO SCH (09:40)
[2022-07-02] MEDS: AMIODARONE 200 MG TABLET PO SCH ×2 (09:40→20:35)
[2022-07-02] MEDS: GABAPENTIN 100 MG CAPSULE PO SCH (20:35)
[2022-07-03 05:31] LABS: Basophils % 0.2 % (0.0-0.8); Eosinophils # 0.1 10*3/uL (0.0-0.87); Hematocrit 28.3 VOL% (35.7-47.0); Immature Granulocytes % 0.6 %; Immature Granulocytes Absolute 0.04 #; Lymphocytes # 1.6 10*3/uL (1.4-4.0); Lymphocytes % 25.1 % (21.3-54.2); Mean Corpuscular HGB Conc 31.8 GM/DL (32-36); Mean Platelet Volume 10.5 FL (9.6-12.0); Monocytes # 0.4 10*3/uL (0.11-0.8); Monocytes % 5.8 % (1.7-12.7); Neutrophils % 66.3 % (38.7-73.9); Platelet Count 130 T/CUMM (130-400); Red Blood Count 2.62 MC/CUMM (3.8-5.5); Red Cell Distribution Width 22.5 % (9.3-17.3); White Blood Count 6.5 T/CUMM (4-12)
[2022-07-03 05:45] LABS: Calcium 8.5 MG/DL (8.5-10.1); Osmolality,Calculated 282.1 MOS/KG (273-304); Potassium 4.4 MMOL/L (3.5-5.1)
[2022-07-03 05:46] LABS: INR 3.4; PT Patient Result 34.7 SECS (10.1-12.1)
[2022-07-03] MEDS: DOCUSATE SODIUM 100 MG CAPSULE PO SCH (08:51)
[2022-07-03] MEDS: METOPROLOL SUCCINATE XL 50 MG TABLET PO SCH (08:51)
[2022-07-03] MEDS: AMIODARONE 200 MG TABLET PO SCH (08:51)
[2022-07-03] MEDS: CYANOCOBALAMIN 500 MCG TABLET PO SCH (08:51)
[2022-07-03] MEDS ORDERED: POLYETHYLENE GLYCOL POWDER 17 GM PACK PO SCH (11:00)
[2022-07-03] MEDS ORDERED: LACTULOSE 20 GM/30 ML UDCUP PO SCH (11:00)
[2022-07-03 11:30] VITALS: BP 119/48
[2022-07-05] MEDS ORDERED: NON-FORMULARY MEDICATION (Ibandronate 150 mg tablet) PO SCH (09:00)
== END 2022-07-03 16:56 | disposition swing bed (61) | DRG 481 ==
LOC: N.ED 15:31 → SUATTDRO 16:58 → N.EDINP 16:58 → N.3E 17:52
PROVIDERS: ADMIT Internal Medicine Geriatric Medicine; ATTEND Family Medicine

== ENCOUNTER 2022-09-07 07:53 | Inpatient (IN) ==
[2022-09-07 08:50] LABS: Amorphous Crystals,Urine Few /HPF (Few); Bacteria,Urine Many /HPF (Few); Bilirubin,Urine Negative (Negative); Blood, Urine Moderate mg/dL (Negative); Glucose,Urine (UA) Negative (Negative); Hyaline Casts,Urine 13 /LPF (0-3); Ketones,Urine Negative (Negative); Mucus,Urine Occasional /LPF (Occasional); Nitrite,Urine Negative (Negative); Protein,Urine 100 mg/dL (Negative); RBC,Urine 21 /HPF (0-4); Squamous Epithelial Cell,Urine Occasional /HPF (0-10); Urine Appearance Cloudy (Clear); Urine Color Yellow (Yellow); Urine Specific Gravity 1.015 (1.001-1.035); Urine Urobilinogen 0.2 eU/dL (<2.0)
[2022-09-07] MEDS ORDERED: SODIUM CHLORIDE 0.9% 1,000 ML IV STA (09:06)
[2022-09-07 09:07] LABS: Basophils % 0.1 % (0.0-0.8); Hematocrit 33.3 VOL% (35.7-47.0); Hemoglobin 10.6 GM/DL (12.0-16.0); Immature Granulocytes % 0.6 %; Immature Granulocytes Absolute 0.04 #; Lymphocytes # 0.6 10*3/uL (1.4-4.0); Lymphocytes % 9.1 % (21.3-54.2); Mean Corpuscular HGB Conc 31.8 GM/DL (32-36); Mean Corpuscular Volume 107.8 FL (87-102); Mean Platelet Volume 9.8 FL (9.6-12.0); Monocytes # 0.4 10*3/uL (0.11-0.8); Monocytes % 5.7 % (1.7-12.7); Neutrophils % 84.5 % (38.7-73.9); Platelet Count 144 T/CUMM (130-400); Red Blood Count 3.09 MC/CUMM (3.8-5.5); Red Cell Distribution Width 15.2 % (9.3-17.3); White Blood Count 6.7 T/CUMM (4-12)
[2022-09-07 09:22] LABS: INR 1.4; PT Patient Result 15.4 SECS (10.1-12.1); Partial Thromboplastin Time 30.8 SECS (23.7-32.9)
[2022-09-07 09:27] LABS: Albumin 2.3 G/DL (3.4-5.0); Bilirubin,Total 0.8 MG/DL (0.20-1.00); Calcium 8.5 MG/DL (8.5-10.1); Potassium 3.3 MMOL/L (3.5-5.1); Total Protein 6.7 G/DL (6.4-8.2)
[2022-09-07] MEDS ORDERED: hydrALAZINE 20 MG/1 ML VIAL IV PRN (12:08)
[2022-09-07] MEDS ORDERED: ACETAMINOPHEN 325 MG TABLET PO PRN (12:08)
[2022-09-07] MEDS ORDERED: SODIUM CHLORIDE 0.9% 1,000 ML IV SCH (12:30)
[2022-09-07] MEDS: SODIUM CHLOR 0.9% KCL 40 MEQ 40 MEQ/1,000 ML BAG IV SCH ×2 (12:31→23:42)
[2022-09-07] MEDS: SODIUM CHLORIDE 0.9% 1,000 ML IV STA ×2 (12:31→16:47)
[2022-09-07] MEDS: ONDANSETRON 4 MG/2 ML VIAL IV PRN (13:56)
[2022-09-07] MEDS: ERTAPENEM 1,000 MG in SODIUM CHLORIDE 0.9% 100 ML IV SCH (13:59)
[2022-09-07] MEDS ORDERED: ACETAMINOPHEN 650 MG SUPP RECTAL PRN (14:04)
[2022-09-07] MEDS: SIMVASTATIN 20 MG TABLET PO SCH (21:20)
[2022-09-07] MEDS: GABAPENTIN 100 MG CAPSULE PO SCH (21:20)
[2022-09-07] MEDS: AMIODARONE 200 MG TABLET PO SCH (21:20)
[2022-09-08 05:20] LABS: Eosinophils % 0.2 % (0.00-10.9); Hematocrit 27.3 VOL% (35.7-47.0); Hemoglobin 8.5 GM/DL (12.0-16.0); Immature Granulocytes % 0.8 %; Immature Granulocytes Absolute 0.05 #; Lymphocytes # 0.9 10*3/uL (1.4-4.0); Mean Corpuscular HGB Conc 31.1 GM/DL (32-36); Mean Corpuscular Volume 111.4 FL (87-102); Mean Platelet Volume 10.7 FL (9.6-12.0); Monocytes # 0.6 10*3/uL (0.11-0.8); Monocytes % 9.1 % (1.7-12.7); Neutrophils % 75.9 % (38.7-73.9); Platelet Count 113 T/CUMM (130-400); Red Blood Count 2.45 MC/CUMM (3.8-5.5); Red Cell Distribution Width 15.7 % (9.3-17.3); White Blood Count 6.4 T/CUMM (4-12)
[2022-09-08 05:48] LABS: Folate 16.47 NG/ML (5.38-24.0)
[2022-09-08 05:52] LABS: Calcium 7.5 MG/DL (8.5-10.1); Osmolality,Calculated 279.4 MOS/KG (273-304); Potassium 4.6 MMOL/L (3.5-5.1); Thyroid Stimulating Hormone 1.67 uIU/ml (0.358-3.74)
[2022-09-08] MEDS: CYANOCOBALAMIN 500 MCG TABLET PO SCH (09:49)
[2022-09-08] MEDS: METOPROLOL SUCCINATE XL 25 MG TABLET PO SCH (09:50)
[2022-09-08] MEDS: PANTOPRAZOLE 40 MG TABLET PO SCH (09:50)
[2022-09-08] MEDS: FERROUS SULFATE 325 MG TABLET PO SCH (09:50)
[2022-09-08] MEDS: POLYETHYLENE GLYCOL POWDER 17 GM PACK PO SCH (09:51)
[2022-09-08] MEDS: AMIODARONE 200 MG TABLET PO SCH ×2 (09:51→20:23)
[2022-09-08] MEDS: ASCORBIC ACID 500 MG TABLET PO SCH (09:53)
[2022-09-08] MEDS: SODIUM CHLOR 0.9% KCL 40 MEQ 40 MEQ/1,000 ML BAG IV SCH (09:55)
[2022-09-08] MEDS: ERTAPENEM 1,000 MG in SODIUM CHLORIDE 0.9% 100 ML IV SCH (13:18)
[2022-09-08] MEDS: GABAPENTIN 100 MG CAPSULE PO SCH (20:23)
[2022-09-08] MEDS: SIMVASTATIN 20 MG TABLET PO SCH (20:23)
[2022-09-09] MEDS: POLYETHYLENE GLYCOL POWDER 17 GM PACK PO SCH (09:04)
[2022-09-09] MEDS: METOPROLOL SUCCINATE XL 25 MG TABLET PO SCH (09:05)
[2022-09-09] MEDS: AMIODARONE 200 MG TABLET PO SCH ×2 (09:05→20:32)
[2022-09-09] MEDS: ASCORBIC ACID 500 MG TABLET PO SCH (09:05)
[2022-09-09] MEDS: PANTOPRAZOLE 40 MG TABLET PO SCH (09:05)
[2022-09-09] MEDS: CYANOCOBALAMIN 500 MCG TABLET PO SCH (09:05)
[2022-09-09] MEDS: FERROUS SULFATE 325 MG TABLET PO SCH (09:05)
[2022-09-09] MEDS: ERTAPENEM 1,000 MG in SODIUM CHLORIDE 0.9% 100 ML IV SCH (13:06)
[2022-09-09] MEDS: SIMVASTATIN 20 MG TABLET PO SCH (20:32)
[2022-09-09] MEDS: GABAPENTIN 100 MG CAPSULE PO SCH (20:32)
[2022-09-10] MEDS ORDERED: LEVOFLOXACIN 750 MG TABLET PO ONE (08:10)
[2022-09-10] MEDS: CYANOCOBALAMIN 500 MCG TABLET PO SCH (08:28)
[2022-09-10] MEDS: AMIODARONE 200 MG TABLET PO SCH ×2 (08:28→21:37)
[2022-09-10] MEDS: ASCORBIC ACID 500 MG TABLET PO SCH (08:29)
[2022-09-10] MEDS: FERROUS SULFATE 325 MG TABLET PO SCH (08:29)
[2022-09-10] MEDS: PANTOPRAZOLE 40 MG TABLET PO SCH (08:29)
[2022-09-10] MEDS: METOPROLOL SUCCINATE XL 25 MG TABLET PO SCH (08:29)
[2022-09-10] MEDS: POLYETHYLENE GLYCOL POWDER 17 GM PACK PO SCH (09:16)
[2022-09-10] MEDS ORDERED: MORPHINE 2 MG/1 ML SYRINGE IV PRN ×2 (10:30→10:31)
[2022-09-10] MEDS: NAPROXEN 500 MG TABLET PO SCH ×2 (11:11→21:38)
[2022-09-10] MEDS: MEROPENEM 500 MG in SODIUM CHLORIDE 0.9% 100 ML IV SCH ×2 (14:31→21:36)
[2022-09-10] MEDS ORDERED: WARFARIN 2.5 MG TABLET PO SCH (18:00)
[2022-09-10] MEDS: GABAPENTIN 100 MG CAPSULE PO SCH (21:37)
[2022-09-10] MEDS: SIMVASTATIN 20 MG TABLET PO SCH (21:38)
[2022-09-11] MEDS: MEROPENEM 500 MG in SODIUM CHLORIDE 0.9% 100 ML IV SCH ×4 (03:31→21:51)
[2022-09-11 06:08] LABS: Basophils % 0.2 % (0.0-0.8); Eosinophils # 0.1 10*3/uL (0.0-0.87); Hematocrit 26.9 VOL% (35.7-47.0); Hemoglobin 8.4 GM/DL (12.0-16.0); Immature Granulocytes % 0.8 %; Immature Granulocytes Absolute 0.04 #; Lymphocytes # 1.2 10*3/uL (1.4-4.0); Lymphocytes % 24.8 % (21.3-54.2); Mean Corpuscular HGB Conc 31.2 GM/DL (32-36); Mean Corpuscular Volume 111.2 FL (87-102); Mean Platelet Volume 10.7 FL (9.6-12.0); Monocytes # 0.3 10*3/uL (0.11-0.8); Monocytes % 5.7 % (1.7-12.7); Neutrophils % 66.5 % (38.7-73.9); Platelet Count 117 T/CUMM (130-400); Red Blood Count 2.42 MC/CUMM (3.8-5.5); Red Cell Distribution Width 15.3 % (9.3-17.3); White Blood Count 4.9 T/CUMM (4-12)
[2022-09-11 06:42] LABS: Albumin 1.7 G/DL (3.4-5.0); Bilirubin,Total 0.5 MG/DL (0.20-1.00); Calcium 7.9 MG/DL (8.5-10.1); Osmolality,Calculated 275.7 MOS/KG (273-304); Potassium 4.2 MMOL/L (3.5-5.1); Total Protein 4.8 G/DL (6.4-8.2)
[2022-09-11] MEDS: FERROUS SULFATE 325 MG TABLET PO SCH (09:41)
[2022-09-11] MEDS: ASCORBIC ACID 500 MG TABLET PO SCH (09:42)
[2022-09-11] MEDS: NAPROXEN 500 MG TABLET PO SCH ×2 (09:42→21:51)
[2022-09-11] MEDS: AMIODARONE 200 MG TABLET PO SCH ×2 (09:42→21:51)
[2022-09-11] MEDS: CYANOCOBALAMIN 500 MCG TABLET PO SCH (09:42)
[2022-09-11] MEDS: METOPROLOL SUCCINATE XL 25 MG TABLET PO SCH (09:42)
[2022-09-11] MEDS: PANTOPRAZOLE 40 MG TABLET PO SCH (09:43)
[2022-09-11] MEDS: POLYETHYLENE GLYCOL POWDER 17 GM PACK PO SCH (09:44)
[2022-09-11] MEDS ORDERED: WARFARIN 5 MG TABLET PO SCH (18:00)
[2022-09-11] MEDS: GABAPENTIN 100 MG CAPSULE PO SCH (21:51)
[2022-09-11] MEDS: SIMVASTATIN 20 MG TABLET PO SCH (21:51)
[2022-09-12] MEDS: MEROPENEM 500 MG in SODIUM CHLORIDE 0.9% 100 ML IV SCH ×4 (03:16→20:41)
[2022-09-12 05:16] LABS: Eosinophils # 0.1 10*3/uL (0.0-0.87); Hemoglobin 8.7 GM/DL (12.0-16.0); Immature Granulocytes % 0.7 %; Immature Granulocytes Absolute 0.04 #; Lymphocytes # 1.2 10*3/uL (1.4-4.0); Lymphocytes % 22.6 % (21.3-54.2); Mean Corpuscular HGB Conc 32.2 GM/DL (32-36); Mean Platelet Volume 10.5 FL (9.6-12.0); Monocytes # 0.3 10*3/uL (0.11-0.8); Monocytes % 5.6 % (1.7-12.7); Neutrophils % 69.1 % (38.7-73.9); Platelet Count 129 T/CUMM (130-400); Red Cell Distribution Width 15.3 % (9.3-17.3); White Blood Count 5.4 T/CUMM (4-12)
[2022-09-12 05:57] LABS: Albumin 1.8 G/DL (3.4-5.0); Bilirubin,Total 0.5 MG/DL (0.20-1.00); Calcium 8.3 MG/DL (8.5-10.1); Osmolality,Calculated 273.8 MOS/KG (273-304); Potassium 4.1 MMOL/L (3.5-5.1); Total Protein 4.8 G/DL (6.4-8.2)
[2022-09-12] MEDS: POLYETHYLENE GLYCOL POWDER 17 GM PACK PO SCH (08:54)
[2022-09-12] MEDS: FERROUS SULFATE 325 MG TABLET PO SCH (08:55)
[2022-09-12] MEDS: CYANOCOBALAMIN 500 MCG TABLET PO SCH (08:55)
[2022-09-12] MEDS: AMIODARONE 200 MG TABLET PO SCH ×2 (08:55→20:42)
[2022-09-12] MEDS: NAPROXEN 500 MG TABLET PO SCH ×2 (08:56→20:42)
[2022-09-12] MEDS: ASCORBIC ACID 500 MG TABLET PO SCH (08:56)
[2022-09-12] MEDS: METOPROLOL SUCCINATE XL 25 MG TABLET PO SCH (09:57)
[2022-09-12] MEDS: PANTOPRAZOLE 40 MG TABLET PO SCH (09:58)
[2022-09-12 16:00] LABS: INR 1.4; PT Patient Result 14.7 SECS (10.1-12.1); Partial Thromboplastin Time 32.8 SECS (23.7-32.9)
[2022-09-12] MEDS: GABAPENTIN 100 MG CAPSULE PO SCH (20:42)
[2022-09-12] MEDS: SIMVASTATIN 20 MG TABLET PO SCH (20:43)
[2022-09-13] MEDS: MEROPENEM 500 MG in SODIUM CHLORIDE 0.9% 100 ML IV SCH ×4 (04:45→21:49)
[2022-09-13 05:42] LABS: Basophils % 0.4 % (0.0-0.8); Eosinophils # 0.1 10*3/uL (0.0-0.87); Hematocrit 28.4 VOL% (35.7-47.0); Hemoglobin 8.8 GM/DL (12.0-16.0); Immature Granulocytes % 0.7 %; Immature Granulocytes Absolute 0.03 #; Lymphocytes # 1.4 10*3/uL (1.4-4.0); Lymphocytes % 29.3 % (21.3-54.2); Mean Corpuscular Volume 108.4 FL (87-102); Monocytes # 0.3 10*3/uL (0.11-0.8); Monocytes % 5.4 % (1.7-12.7); Neutrophils % 62.2 % (38.7-73.9); Platelet Count 127 T/CUMM (130-400); Red Blood Count 2.62 MC/CUMM (3.8-5.5); Red Cell Distribution Width 15.6 % (9.3-17.3); White Blood Count 4.6 T/CUMM (4-12)
[2022-09-13 06:05] LABS: Albumin 1.6 G/DL (3.4-5.0); Bilirubin,Total 0.5 MG/DL (0.20-1.00); Calcium 7.6 MG/DL (8.5-10.1); Osmolality,Calculated 277.5 MOS/KG (273-304); Potassium 4.1 MMOL/L (3.5-5.1); Total Protein 4.5 G/DL (6.4-8.2)
[2022-09-13] MEDS: FERROUS SULFATE 325 MG TABLET PO SCH (10:06)
[2022-09-13] MEDS: CYANOCOBALAMIN 500 MCG TABLET PO SCH (10:06)
[2022-09-13] MEDS: PANTOPRAZOLE 40 MG TABLET PO SCH (10:06)
[2022-09-13] MEDS: ASCORBIC ACID 500 MG TABLET PO SCH (10:06)
[2022-09-13] MEDS: METOPROLOL SUCCINATE XL 25 MG TABLET PO SCH ×2 (10:06→14:51)
[2022-09-13] MEDS: AMIODARONE 200 MG TABLET PO SCH ×2 (10:06→21:52)
[2022-09-13] MEDS: NAPROXEN 500 MG TABLET PO SCH ×2 (10:06→21:51)
[2022-09-13] MEDS: POLYETHYLENE GLYCOL POWDER 17 GM PACK PO SCH (10:07)
[2022-09-13] MEDS: GABAPENTIN 100 MG CAPSULE PO SCH (21:52)
[2022-09-14] MEDS: MEROPENEM 500 MG in SODIUM CHLORIDE 0.9% 100 ML IV SCH ×4 (03:37→21:24)
[2022-09-14 04:51] LABS: Basophils % 0.2 % (0.0-0.8); Eosinophils # 0.1 10*3/uL (0.0-0.87); Eosinophils % 2.3 % (0.00-10.9); Hematocrit 27.8 VOL% (35.7-47.0); Immature Granulocytes % 1.1 %; Immature Granulocytes Absolute 0.05 #; Lymphocytes # 1.5 10*3/uL (1.4-4.0); Lymphocytes % 31.7 % (21.3-54.2); Mean Corpuscular HGB Conc 32.4 GM/DL (32-36); Mean Corpuscular Volume 105.7 FL (87-102); Mean Platelet Volume 10.4 FL (9.6-12.0); Monocytes # 0.3 10*3/uL (0.11-0.8); Monocytes % 5.7 % (1.7-12.7); Platelet Count 135 T/CUMM (130-400); Red Blood Count 2.63 MC/CUMM (3.8-5.5); Red Cell Distribution Width 15.6 % (9.3-17.3); White Blood Count 4.8 T/CUMM (4-12)
[2022-09-14 05:18] LABS: Albumin 1.7 G/DL (3.4-5.0); Bilirubin,Total 0.5 MG/DL (0.20-1.00); Calcium 7.8 MG/DL (8.5-10.1); Osmolality,Calculated 275.7 MOS/KG (273-304); Potassium 3.9 MMOL/L (3.5-5.1); Total Protein 4.7 G/DL (6.4-8.2)
[2022-09-14] MEDS: AMIODARONE 200 MG TABLET PO SCH ×2 (08:22→21:25)
[2022-09-14] MEDS: FERROUS SULFATE 325 MG TABLET PO SCH (08:22)
[2022-09-14] MEDS: ASCORBIC ACID 500 MG TABLET PO SCH (08:23)
[2022-09-14] MEDS: METOPROLOL SUCCINATE XL 25 MG TABLET PO SCH (08:23)
[2022-09-14] MEDS: NAPROXEN 500 MG TABLET PO SCH ×2 (08:23→21:25)
[2022-09-14] MEDS: PANTOPRAZOLE 40 MG TABLET PO SCH (08:23)
[2022-09-14] MEDS: POLYETHYLENE GLYCOL POWDER 17 GM PACK PO SCH (08:23)
[2022-09-14] MEDS: CYANOCOBALAMIN 500 MCG TABLET PO SCH (08:23)
[2022-09-14] MEDS: GABAPENTIN 100 MG CAPSULE PO SCH (21:25)
[2022-09-14] MEDS: MENTHOL/ZINC OXIDE OINT 71 GM JAR TOP SCH (21:28)
[2022-09-15] MEDS: MEROPENEM 500 MG in SODIUM CHLORIDE 0.9% 100 ML IV SCH ×4 (03:27→20:22)
[2022-09-15 06:20] LABS: Basophils % 0.3 % (0.0-0.8); Eosinophils # 0.1 10*3/uL (0.0-0.87); Eosinophils % 1.9 % (0.00-10.9); Hematocrit 25.8 VOL% (35.7-47.0); Hemoglobin 8.3 GM/DL (12.0-16.0); Immature Granulocytes % 0.5 %; Immature Granulocytes Absolute 0.02 #; Lymphocytes # 1.3 10*3/uL (1.4-4.0); Mean Corpuscular HGB Conc 32.2 GM/DL (32-36); Mean Corpuscular Volume 107.1 FL (87-102); Mean Platelet Volume 10.7 FL (9.6-12.0); Monocytes # 0.3 10*3/uL (0.11-0.8); Monocytes % 6.8 % (1.7-12.7); Neutrophils % 55.5 % (38.7-73.9); Platelet Count 121 T/CUMM (130-400); Red Blood Count 2.41 MC/CUMM (3.8-5.5); Red Cell Distribution Width 15.9 % (9.3-17.3); White Blood Count 3.7 T/CUMM (4-12)
[2022-09-15 06:47] LABS: Albumin 1.5 G/DL (3.4-5.0); Bilirubin,Total 0.4 MG/DL (0.20-1.00); Calcium 7.4 MG/DL (8.5-10.1); Osmolality,Calculated 273.7 MOS/KG (273-304); Total Protein 4.3 G/DL (6.4-8.2)
[2022-09-15] MEDS: AMIODARONE 200 MG TABLET PO SCH ×2 (08:00→20:22)
[2022-09-15] MEDS: METOPROLOL SUCCINATE XL 25 MG TABLET PO SCH (08:00)
[2022-09-15] MEDS: MENTHOL/ZINC OXIDE OINT 71 GM JAR TOP SCH ×2 (09:17→20:28)
[2022-09-15] MEDS: PANTOPRAZOLE 40 MG TABLET PO SCH (09:18)
[2022-09-15] MEDS: POLYETHYLENE GLYCOL POWDER 17 GM PACK PO SCH (09:18)
[2022-09-15] MEDS: NAPROXEN 500 MG TABLET PO SCH ×2 (09:18→20:21)
[2022-09-15] MEDS: FERROUS SULFATE 325 MG TABLET PO SCH (09:18)
[2022-09-15] MEDS: CYANOCOBALAMIN 500 MCG TABLET PO SCH (09:19)
[2022-09-15] MEDS: ASCORBIC ACID 500 MG TABLET PO SCH (09:19)
[2022-09-15] MEDS: ONDANSETRON 4 MG/2 ML VIAL IV PRN (09:33)
[2022-09-15] MEDS ORDERED: ROPIVACAINE 0.5% 30 ML VIAL ONE (10:38)
[2022-09-15] MEDS ORDERED: TISSUE ADHESIVE 1 EACH APPLICATOR TOP ONE (10:38)
[2022-09-15] MEDS ORDERED: LACTATED RINGERS 1,000 ML IV SCH (11:00)
[2022-09-15] MEDS ORDERED: MIDAZOLAM 2 MG/2 ML VIAL ONE (11:17)
[2022-09-15] MEDS ORDERED: propofoL 200 MG/20 ML VIAL IV ONE (12:08)
[2022-09-15] MEDS: CALCIUM (CARBONATE)/VITAMIN D 600 MG-400 UNIT TABLET PO SCH (20:22)
[2022-09-15] MEDS: GABAPENTIN 100 MG CAPSULE PO SCH (20:22)
[2022-09-15] MEDS: WARFARIN 5 MG TABLET PO SCH (21:35)
[2022-09-16] MEDS: MEROPENEM 500 MG in SODIUM CHLORIDE 0.9% 100 ML IV SCH ×4 (02:55→21:29)
[2022-09-16 05:44] LABS: Basophils % 0.3 % (0.0-0.8); Eosinophils # 0.1 10*3/uL (0.0-0.87); Eosinophils % 2.8 % (0.00-10.9); Hematocrit 25.8 VOL% (35.7-47.0); Hemoglobin 8.3 GM/DL (12.0-16.0); Immature Granulocytes Absolute 0.04 #; Lymphocytes # 1.2 10*3/uL (1.4-4.0); Lymphocytes % 31.6 % (21.3-54.2); Mean Corpuscular HGB Conc 32.2 GM/DL (32-36); Mean Corpuscular Volume 108.4 FL (87-102); Mean Platelet Volume 10.5 FL (9.6-12.0); Monocytes # 0.2 10*3/uL (0.11-0.8); Monocytes % 5.6 % (1.7-12.7); Neutrophils % 58.7 % (38.7-73.9); Platelet Count 125 T/CUMM (130-400); Red Blood Count 2.38 MC/CUMM (3.8-5.5); Red Cell Distribution Width 16.1 % (9.3-17.3); White Blood Count 3.9 T/CUMM (4-12)
[2022-09-16 05:52] LABS: INR 1.3; PT Patient Result 13.6 SECS (10.1-12.1)
[2022-09-16 05:56] LABS: Calcium 8.1 MG/DL (8.5-10.1); Osmolality,Calculated 278.4 MOS/KG (273-304); Potassium 3.8 MMOL/L (3.5-5.1)
[2022-09-16 08:05] LABS: Anisocytosis 1+; Macrocytosis 1+; Ovalocytes Few; Platelet Estimate Adequate; Target Cells Few
[2022-09-16] MEDS: MENTHOL/ZINC OXIDE OINT 71 GM JAR TOP SCH ×2 (09:30→21:25)
[2022-09-16] MEDS: POLYETHYLENE GLYCOL POWDER 17 GM PACK PO SCH (09:30)
[2022-09-16] MEDS: NAPROXEN 500 MG TABLET PO SCH ×2 (09:31→21:24)
[2022-09-16] MEDS: ASCORBIC ACID 500 MG TABLET PO SCH (09:31)
[2022-09-16] MEDS: PANTOPRAZOLE 40 MG TABLET PO SCH (09:31)
[2022-09-16] MEDS: CALCIUM (CARBONATE)/VITAMIN D 600 MG-400 UNIT TABLET PO SCH ×2 (09:31→21:24)
[2022-09-16] MEDS: CYANOCOBALAMIN 500 MCG TABLET PO SCH (09:32)
[2022-09-16] MEDS: FERROUS SULFATE 325 MG TABLET PO SCH (09:32)
[2022-09-16] MEDS: METOPROLOL SUCCINATE XL 25 MG TABLET PO SCH (09:44)
[2022-09-16] MEDS: WARFARIN 5 MG TABLET PO SCH ×2 (09:44→18:39)
[2022-09-16] MEDS: AMIODARONE 200 MG TABLET PO SCH ×2 (09:44→21:24)
[2022-09-16] MEDS: GABAPENTIN 100 MG CAPSULE PO SCH (21:24)
[2022-09-17 05:02] LABS: Basophils % 0.3 % (0.0-0.8); Eosinophils # 0.1 10*3/uL (0.0-0.87); Eosinophils % 2.4 % (0.00-10.9); Hematocrit 26.5 VOL% (35.7-47.0); Hemoglobin 8.3 GM/DL (12.0-16.0); Immature Granulocytes % 1.1 %; Immature Granulocytes Absolute 0.04 #; Lymphocytes # 1.3 10*3/uL (1.4-4.0); Lymphocytes % 34.3 % (21.3-54.2); Mean Corpuscular HGB Conc 31.3 GM/DL (32-36); Mean Corpuscular Volume 110.4 FL (87-102); Mean Platelet Volume 10.4 FL (9.6-12.0); Monocytes # 0.3 10*3/uL (0.11-0.8); Monocytes % 6.7 % (1.7-12.7); Neutrophils % 55.2 % (38.7-73.9); Platelet Count 109 T/CUMM (130-400); Red Cell Distribution Width 16.1 % (9.3-17.3); White Blood Count 3.7 T/CUMM (4-12)
[2022-09-17 05:19] LABS: INR 1.9; PT Patient Result 19.8 SECS (10.1-12.1)
[2022-09-17] MEDS: MEROPENEM 500 MG in SODIUM CHLORIDE 0.9% 100 ML IV SCH ×4 (05:20→20:40)
[2022-09-17 05:30] LABS: Albumin 1.7 G/DL (3.4-5.0); Bilirubin,Total 0.4 MG/DL (0.20-1.00); Calcium 8.1 MG/DL (8.5-10.1); Osmolality,Calculated 275.5 MOS/KG (273-304); Potassium 3.9 MMOL/L (3.5-5.1); Total Protein 4.5 G/DL (6.4-8.2)
[2022-09-17 06:44] LABS: Platelet Estimate Adequate
[2022-09-17 07:01] LABS: Anisocytosis 1+; Burr Cells Few; Macrocytosis 1+; Ovalocytes Few; Tear Drop Cells Few
[2022-09-17] MEDS: AMIODARONE 200 MG TABLET PO SCH ×2 (08:44→20:38)
[2022-09-17] MEDS: METOPROLOL SUCCINATE XL 25 MG TABLET PO SCH (09:41)
[2022-09-17] MEDS: CYANOCOBALAMIN 500 MCG TABLET PO SCH (09:42)
[2022-09-17] MEDS: ASCORBIC ACID 500 MG TABLET PO SCH (09:42)
[2022-09-17] MEDS: NAPROXEN 500 MG TABLET PO SCH ×2 (09:42→20:37)
[2022-09-17] MEDS: PANTOPRAZOLE 40 MG TABLET PO SCH (09:42)
[2022-09-17] MEDS: CALCIUM (CARBONATE)/VITAMIN D 600 MG-400 UNIT TABLET PO SCH ×2 (09:42→20:38)
[2022-09-17] MEDS: FERROUS SULFATE 325 MG TABLET PO SCH (09:42)
[2022-09-17] MEDS: POLYETHYLENE GLYCOL POWDER 17 GM PACK PO SCH (09:43)
[2022-09-17] MEDS: MENTHOL/ZINC OXIDE OINT 71 GM JAR TOP SCH ×2 (09:43→20:43)
[2022-09-17] MEDS: WARFARIN 5 MG TABLET PO SCH (17:34)
[2022-09-17] MEDS: ONDANSETRON 4 MG/2 ML VIAL IV PRN (19:15)
[2022-09-17] MEDS: GABAPENTIN 100 MG CAPSULE PO SCH (20:38)
[2022-09-18 05:31] LABS: Basophils % 0.3 % (0.0-0.8); Eosinophils # 0.1 10*3/uL (0.0-0.87); Eosinophils % 2.4 % (0.00-10.9); Hematocrit 24.4 VOL% (35.7-47.0); Hemoglobin 7.9 GM/DL (12.0-16.0); Immature Granulocytes % 0.3 %; Immature Granulocytes Absolute 0.01 #; Lymphocytes # 1.3 10*3/uL (1.4-4.0); Lymphocytes % 38.3 % (21.3-54.2); Mean Corpuscular HGB Conc 32.4 GM/DL (32-36); Mean Platelet Volume 10.7 FL (9.6-12.0); Monocytes # 0.2 10*3/uL (0.11-0.8); Monocytes % 5.8 % (1.7-12.7); Neutrophils % 52.9 % (38.7-73.9); Platelet Count 101 T/CUMM (130-400); Red Blood Count 2.28 MC/CUMM (3.8-5.5); Red Cell Distribution Width 16.3 % (9.3-17.3); White Blood Count 3.3 T/CUMM (4-12)
[2022-09-18 05:40] LABS: INR 2.9; PT Patient Result 29.9 SECS (10.1-12.1)
[2022-09-18 06:00] LABS: Albumin 1.6 G/DL (3.4-5.0); Bilirubin,Total 0.4 MG/DL (0.20-1.00); Calcium 8.5 MG/DL (8.5-10.1); Osmolality,Calculated 279.3 MOS/KG (273-304); Potassium 4.1 MMOL/L (3.5-5.1)
[2022-09-18] MEDS: NAPROXEN 500 MG TABLET PO SCH ×2 (09:42→20:17)
[2022-09-18] MEDS: FERROUS SULFATE 325 MG TABLET PO SCH (09:42)
[2022-09-18] MEDS: CALCIUM (CARBONATE)/VITAMIN D 600 MG-400 UNIT TABLET PO SCH ×2 (09:42→20:17)
[2022-09-18] MEDS: POLYETHYLENE GLYCOL POWDER 17 GM PACK PO SCH (09:42)
[2022-09-18] MEDS: ASCORBIC ACID 500 MG TABLET PO SCH (09:43)
[2022-09-18] MEDS: PANTOPRAZOLE 40 MG TABLET PO SCH (09:43)
[2022-09-18] MEDS: MENTHOL/ZINC OXIDE OINT 71 GM JAR TOP SCH ×2 (09:43→20:17)
[2022-09-18] MEDS: CYANOCOBALAMIN 500 MCG TABLET PO SCH (09:43)
[2022-09-18] MEDS: AMIODARONE 200 MG TABLET PO SCH ×2 (09:43→20:17)
[2022-09-18] MEDS: HEPARIN DRIP 25,000 UNITS/500 ML PREMIX IV SCH ×2 (11:26→18:21)
[2022-09-18] MEDS: ONDANSETRON 4 MG/2 ML VIAL IV PRN (15:44)
[2022-09-18] MEDS: GABAPENTIN 100 MG CAPSULE PO SCH (20:17)
[2022-09-19 03:25] LABS: Basophils % 0.3 % (0.0-0.8); Eosinophils # 0.1 10*3/uL (0.0-0.87); Eosinophils % 2.4 % (0.00-10.9); Hematocrit 27.8 VOL% (35.7-47.0); Hemoglobin 8.9 GM/DL (12.0-16.0); Immature Granulocytes % 0.5 %; Immature Granulocytes Absolute 0.02 #; Lymphocytes # 1.5 10*3/uL (1.4-4.0); Lymphocytes % 38.2 % (21.3-54.2); Mean Corpuscular Volume 107.8 FL (87-102); Mean Platelet Volume 10.7 FL (9.6-12.0); Monocytes # 0.2 10*3/uL (0.11-0.8); Monocytes % 4.5 % (1.7-12.7); Neutrophils % 54.1 % (38.7-73.9); Platelet Count 113 T/CUMM (130-400); Red Blood Count 2.58 MC/CUMM (3.8-5.5); Red Cell Distribution Width 16.4 % (9.3-17.3); White Blood Count 3.8 T/CUMM (4-12)
[2022-09-19 03:35] LABS: INR 3.1; PT Patient Result 31.5 SECS (10.1-12.1)
[2022-09-19 03:41] LABS: Calcium 8.2 MG/DL (8.5-10.1); Osmolality,Calculated 273.7 MOS/KG (273-304)
[2022-09-19 03:45] LABS: Albumin 1.6 G/DL (3.4-5.0); Bilirubin,Total 0.5 MG/DL (0.20-1.00); Calcium 7.8 MG/DL (8.5-10.1); Osmolality,Calculated 274.4 MOS/KG (273-304); Potassium 4.1 MMOL/L (3.5-5.1); Total Protein 4.5 G/DL (6.4-8.2)
[2022-09-19] MEDS ORDERED: MEROPENEM 500 MG in SODIUM CHLORIDE 0.9% 100 ML IV SCH (09:00)
[2022-09-19] MEDS: AMIODARONE 200 MG TABLET PO SCH ×2 (10:00→20:28)
[2022-09-19] MEDS: POLYETHYLENE GLYCOL POWDER 17 GM PACK PO SCH (10:00)
[2022-09-19] MEDS: PANTOPRAZOLE 40 MG TABLET PO SCH (10:00)
[2022-09-19] MEDS: CALCIUM (CARBONATE)/VITAMIN D 600 MG-400 UNIT TABLET PO SCH ×2 (10:00→20:28)
[2022-09-19] MEDS: CYANOCOBALAMIN 500 MCG TABLET PO SCH (10:00)
[2022-09-19] MEDS: NAPROXEN 500 MG TABLET PO SCH ×2 (10:00→20:28)
[2022-09-19] MEDS: FERROUS SULFATE 325 MG TABLET PO SCH (10:00)
[2022-09-19] MEDS: ASCORBIC ACID 500 MG TABLET PO SCH (10:01)
[2022-09-19] MEDS: MENTHOL/ZINC OXIDE OINT 71 GM JAR TOP SCH ×2 (10:01→20:28)
[2022-09-19] MEDS: traMADol 50 MG TABLET PO PRN (17:07)
[2022-09-19] MEDS: MEGESTROL 40 MG TABLET PO SCH (20:28)
[2022-09-19] MEDS: GABAPENTIN 100 MG CAPSULE PO SCH (20:28)
[2022-09-19] MEDS: SIMVASTATIN 20 MG TABLET PO SCH (20:29)
[2022-09-20 05:24] LABS: Basophils % 0.2 % (0.0-0.8); Eosinophils # 0.1 10*3/uL (0.0-0.87); Hematocrit 24.3 VOL% (35.7-47.0); Hemoglobin 7.8 GM/DL (12.0-16.0); Immature Granulocytes % 0.5 %; Immature Granulocytes Absolute 0.02 #; Lymphocytes # 1.7 10*3/uL (1.4-4.0); Mean Corpuscular HGB Conc 32.1 GM/DL (32-36); Mean Corpuscular Volume 107.5 FL (87-102); Mean Platelet Volume 11.1 FL (9.6-12.0); Monocytes # 0.2 10*3/uL (0.11-0.8); Monocytes % 5.5 % (1.7-12.7); Neutrophils % 48.8 % (38.7-73.9); Platelet Count 120 T/CUMM (130-400); Red Blood Count 2.26 MC/CUMM (3.8-5.5); Red Cell Distribution Width 16.8 % (9.3-17.3)
[2022-09-20 05:44] LABS: Alanine Aminotransferase 47 U/L (13-56); Albumin 1.7 G/DL (3.4-5.0); Alkaline Phosphatase 165 U/L (45-117); Aspartate Amino Transferase 73 U/L (0-37); Bilirubin,Total < 0.39 MG/DL (0.20-1.00); Blood Urea Nitrogen 12 MG/DL (7-18); Carbon Dioxide 29 MMOL/L (21-32); Chloride 109 MMOL/L (98-107); Glucose 104 MG/DL (74-106); Osmolality,Calculated 280.3 MOS/KG (273-304); Potassium 4.3 MMOL/L (3.5-5.1); Sodium 141 MMOL/L (136-145); Total Protein 4.3 G/DL (6.4-8.2)
[2022-09-20 05:47] LABS: Osmolality,Calculated 278.4 MOS/KG (273-304); Potassium 4.5 MMOL/L (3.5-5.1)
[2022-09-20 07:44] LABS: INR 3.8; PT Patient Result 37.8 SECS (10.1-12.1)
[2022-09-20] MEDS: POLYETHYLENE GLYCOL POWDER 17 GM PACK PO SCH (08:27)
[2022-09-20] MEDS: PANTOPRAZOLE 40 MG TABLET PO SCH (08:27)
[2022-09-20] MEDS: FERROUS SULFATE 325 MG TABLET PO SCH (08:27)
[2022-09-20] MEDS: MEGESTROL 40 MG TABLET PO SCH ×2 (08:27→20:02)
[2022-09-20] MEDS: NAPROXEN 500 MG TABLET PO SCH ×2 (08:27→20:03)
[2022-09-20] MEDS: AMIODARONE 200 MG TABLET PO SCH ×2 (08:27→20:03)
[2022-09-20] MEDS: CYANOCOBALAMIN 500 MCG TABLET PO SCH (08:27)
[2022-09-20] MEDS: ASCORBIC ACID 500 MG TABLET PO SCH (08:27)
[2022-09-20] MEDS: CALCIUM (CARBONATE)/VITAMIN D 600 MG-400 UNIT TABLET PO SCH ×2 (08:27→20:02)
[2022-09-20] MEDS: MENTHOL/ZINC OXIDE OINT 71 GM JAR TOP SCH ×2 (08:28→20:03)
[2022-09-20] MEDS: traMADol 50 MG TABLET PO PRN (16:40)
[2022-09-20] MEDS: GABAPENTIN 100 MG CAPSULE PO SCH (20:03)
[2022-09-20] MEDS: SIMVASTATIN 20 MG TABLET PO SCH (20:03)
[2022-09-21 05:50] LABS: Basophils % 0.2 % (0.0-0.8); Eosinophils # 0.1 10*3/uL (0.0-0.87); Eosinophils % 1.9 % (0.00-10.9); Hematocrit 23.1 VOL% (35.7-47.0); Hemoglobin 7.4 GM/DL (12.0-16.0); Immature Granulocytes % 0.4 %; Immature Granulocytes Absolute 0.02 #; Lymphocytes # 1.7 10*3/uL (1.4-4.0); Lymphocytes % 31.6 % (21.3-54.2); Mean Corpuscular Volume 107.4 FL (87-102); Mean Platelet Volume 11.2 FL (9.6-12.0); Monocytes # 0.2 10*3/uL (0.11-0.8); Monocytes % 4.6 % (1.7-12.7); Neutrophils % 61.3 % (38.7-73.9); Platelet Count 124 T/CUMM (130-400); Red Blood Count 2.15 MC/CUMM (3.8-5.5); Red Cell Distribution Width 16.3 % (9.3-17.3); White Blood Count 5.2 T/CUMM (4-12)
[2022-09-21 06:01] LABS: INR 3.5; PT Patient Result 35.3 SECS (10.1-12.1)
[2022-09-21 06:15] LABS: Albumin 1.8 G/DL (3.4-5.0); Bilirubin,Total 0.4 MG/DL (0.20-1.00); Calcium 8.3 MG/DL (8.5-10.1); Osmolality,Calculated 275.7 MOS/KG (273-304); Potassium 4.2 MMOL/L (3.5-5.1); Total Protein 4.3 G/DL (6.4-8.2)
[2022-09-21] MEDS: POLYETHYLENE GLYCOL POWDER 17 GM PACK PO SCH (08:49)
[2022-09-21] MEDS: PANTOPRAZOLE 40 MG TABLET PO SCH (08:49)
[2022-09-21] MEDS: NAPROXEN 500 MG TABLET PO SCH ×2 (08:49→20:07)
[2022-09-21] MEDS: CALCIUM (CARBONATE)/VITAMIN D 600 MG-400 UNIT TABLET PO SCH ×2 (08:49→20:08)
[2022-09-21] MEDS: CYANOCOBALAMIN 500 MCG TABLET PO SCH (08:49)
[2022-09-21] MEDS: ASCORBIC ACID 500 MG TABLET PO SCH (08:49)
[2022-09-21] MEDS: FERROUS SULFATE 325 MG TABLET PO SCH (08:50)
[2022-09-21] MEDS: MEGESTROL 40 MG TABLET PO SCH ×2 (08:50→20:07)
[2022-09-21] MEDS: MENTHOL/ZINC OXIDE OINT 71 GM JAR TOP SCH ×2 (08:50→20:08)
[2022-09-21] MEDS: AMIODARONE 200 MG TABLET PO SCH ×2 (08:51→20:07)
[2022-09-21 12:42] LABS: Hematocrit 25.2 VOL% (35.7-47.0); Hemoglobin 8.2 GM/DL (12.0-16.0)
[2022-09-21 16:17] LABS: Bilirubin,Urine Negative (Negative); Glucose,Urine (UA) Negative (Negative); Hyaline Casts,Urine 15 /LPF (0-3); Ketones,Urine Negative (Negative); Mucus,Urine Few /LPF (Occasional); Nitrite,Urine Negative (Negative); Protein,Urine Negative (Negative); RBC,Urine 29 /HPF (0-4); Squamous Epithelial Cell,Urine Occasional /HPF (0-10); Urine Appearance Cloudy (Clear); Urine Color Yellow (Yellow); Urine Specific Gravity 1.015 (1.001-1.035)
[2022-09-21 16:18] LABS: Blood, Urine Large mg/dL (Negative); Urine Urobilinogen 0.2 eU/dL (<2.0)
[2022-09-21] MEDS: traMADol 50 MG TABLET PO PRN (18:39)
[2022-09-21] MEDS: SIMVASTATIN 20 MG TABLET PO SCH (20:07)
[2022-09-21] MEDS: GABAPENTIN 100 MG CAPSULE PO SCH (20:07)
[2022-09-21] MEDS: ONDANSETRON 4 MG/2 ML VIAL IV PRN (22:31)
[2022-09-22 06:11] LABS: Basophils % 0.2 % (0.0-0.8); Eosinophils # 0.1 10*3/uL (0.0-0.87); Eosinophils % 2.2 % (0.00-10.9); Hematocrit 24.4 VOL% (35.7-47.0); Immature Granulocytes % 0.5 %; Immature Granulocytes Absolute 0.02 #; Lymphocytes # 1.5 10*3/uL (1.4-4.0); Lymphocytes % 35.2 % (21.3-54.2); Mean Corpuscular HGB Conc 32.8 GM/DL (32-36); Mean Corpuscular Volume 106.1 FL (87-102); Mean Platelet Volume 11.1 FL (9.6-12.0); Monocytes # 0.2 10*3/uL (0.11-0.8); Monocytes % 4.4 % (1.7-12.7); Neutrophils % 57.5 % (38.7-73.9); Platelet Count 119 T/CUMM (130-400); Red Cell Distribution Width 16.2 % (9.3-17.3); White Blood Count 4.1 T/CUMM (4-12)
[2022-09-22 06:23] LABS: Calcium 8.3 MG/DL (8.5-10.1); Osmolality,Calculated 273.7 MOS/KG (273-304); Potassium 4.5 MMOL/L (3.5-5.1)
[2022-09-22 06:25] LABS: INR 2.7; PT Patient Result 27.7 SECS (10.1-12.1)
[2022-09-22 06:26] LABS: Albumin 1.9 G/DL (3.4-5.0); Bilirubin,Total 0.4 MG/DL (0.20-1.00); Calcium 8.1 MG/DL (8.5-10.1); Osmolality,Calculated 272.8 MOS/KG (273-304); Potassium 4.5 MMOL/L (3.5-5.1); Total Protein 4.2 G/DL (6.4-8.2)
[2022-09-22] MEDS: CYANOCOBALAMIN 500 MCG TABLET PO SCH (10:38)
[2022-09-22] MEDS: CALCIUM (CARBONATE)/VITAMIN D 600 MG-400 UNIT TABLET PO SCH ×2 (10:38→21:13)
[2022-09-22] MEDS: FERROUS SULFATE 325 MG TABLET PO SCH (10:39)
[2022-09-22] MEDS: NAPROXEN 500 MG TABLET PO SCH ×2 (10:39→21:14)
[2022-09-22] MEDS: PANTOPRAZOLE 40 MG TABLET PO SCH (10:39)
[2022-09-22] MEDS: AMIODARONE 200 MG TABLET PO SCH ×2 (10:40→21:13)
[2022-09-22] MEDS: POLYETHYLENE GLYCOL POWDER 17 GM PACK PO SCH (10:41)
[2022-09-22] MEDS: MEGESTROL 40 MG TABLET PO SCH ×2 (10:41→21:13)
[2022-09-22] MEDS: ASCORBIC ACID 500 MG TABLET PO SCH (10:41)
[2022-09-22] MEDS: MENTHOL/ZINC OXIDE OINT 71 GM JAR TOP SCH ×2 (10:42→21:31)
[2022-09-22] MEDS: WARFARIN 5 MG TABLET PO SCH (17:46)
[2022-09-22] MEDS: SIMVASTATIN 20 MG TABLET PO SCH (21:13)
[2022-09-22] MEDS: GABAPENTIN 100 MG CAPSULE PO SCH (21:14)
[2022-09-23 05:53] LABS: Basophils % 0.3 % (0.0-0.8); Eosinophils # 0.1 10*3/uL (0.0-0.87); Eosinophils % 2.5 % (0.00-10.9); Hematocrit 26.3 VOL% (35.7-47.0); Hemoglobin 8.4 GM/DL (12.0-16.0); Immature Granulocytes % 0.3 %; Immature Granulocytes Absolute 0.01 #; Lymphocytes # 1.4 10*3/uL (1.4-4.0); Lymphocytes % 35.9 % (21.3-54.2); Mean Corpuscular HGB Conc 31.9 GM/DL (32-36); Mean Corpuscular Volume 106.5 FL (87-102); Mean Platelet Volume 10.4 FL (9.6-12.0); Monocytes # 0.2 10*3/uL (0.11-0.8); Monocytes % 4.8 % (1.7-12.7); Neutrophils % 56.2 % (38.7-73.9); Platelet Count 148 T/CUMM (130-400); Red Blood Count 2.47 MC/CUMM (3.8-5.5)
[2022-09-23 06:03] LABS: INR 3.2
[2022-09-23 06:06] LABS: Calcium 7.9 MG/DL (8.5-10.1); Osmolality,Calculated 272.7 MOS/KG (273-304); Potassium 4.2 MMOL/L (3.5-5.1)
[2022-09-23 07:11] LABS: Hypochromia 1+; Platelet Estimate Normal
[2022-09-23] MEDS: MENTHOL/ZINC OXIDE OINT 71 GM JAR TOP SCH ×2 (09:14→21:08)
[2022-09-23] MEDS: POLYETHYLENE GLYCOL POWDER 17 GM PACK PO SCH (09:14)
[2022-09-23] MEDS: CYANOCOBALAMIN 500 MCG TABLET PO SCH (09:15)
[2022-09-23] MEDS: CALCIUM (CARBONATE)/VITAMIN D 600 MG-400 UNIT TABLET PO SCH ×2 (09:15→21:05)
[2022-09-23] MEDS: PANTOPRAZOLE 40 MG TABLET PO SCH (09:15)
[2022-09-23] MEDS: ASCORBIC ACID 500 MG TABLET PO SCH (09:15)
[2022-09-23] MEDS: MEGESTROL 40 MG TABLET PO SCH ×2 (09:16→21:03)
[2022-09-23] MEDS: AMIODARONE 200 MG TABLET PO SCH ×2 (09:16→21:04)
[2022-09-23] MEDS: FERROUS SULFATE 325 MG TABLET PO SCH (09:16)
[2022-09-23] MEDS: NAPROXEN 500 MG TABLET PO SCH ×2 (09:16→21:03)
[2022-09-23] MEDS: traMADol 50 MG TABLET PO PRN ×2 (13:39→21:06)
[2022-09-23] MEDS: WARFARIN 5 MG TABLET PO SCH (17:04)
[2022-09-23] MEDS: GABAPENTIN 100 MG CAPSULE PO SCH (21:03)
[2022-09-23] MEDS: SIMVASTATIN 20 MG TABLET PO SCH (21:04)
[2022-09-24] MEDS: MEGESTROL 40 MG TABLET PO SCH ×2 (09:06→20:46)
[2022-09-24] MEDS: CALCIUM (CARBONATE)/VITAMIN D 600 MG-400 UNIT TABLET PO SCH ×2 (09:06→20:46)
[2022-09-24] MEDS: POLYETHYLENE GLYCOL POWDER 17 GM PACK PO SCH (09:06)
[2022-09-24] MEDS: FERROUS SULFATE 325 MG TABLET PO SCH (09:07)
[2022-09-24] MEDS: MENTHOL/ZINC OXIDE OINT 71 GM JAR TOP SCH ×2 (09:07→20:46)
[2022-09-24] MEDS: ASCORBIC ACID 500 MG TABLET PO SCH (09:07)
[2022-09-24] MEDS: AMIODARONE 200 MG TABLET PO SCH ×2 (09:07→20:47)
[2022-09-24] MEDS: PANTOPRAZOLE 40 MG TABLET PO SCH (09:07)
[2022-09-24] MEDS: NAPROXEN 500 MG TABLET PO SCH ×2 (09:07→20:46)
[2022-09-24] MEDS: CYANOCOBALAMIN 500 MCG TABLET PO SCH (09:07)
[2022-09-24] MEDS: WARFARIN 5 MG TABLET PO SCH (17:23)
[2022-09-24] MEDS: traMADol 50 MG TABLET PO PRN (18:31)
[2022-09-24] MEDS: SIMVASTATIN 20 MG TABLET PO SCH (20:46)
[2022-09-24] MEDS: GABAPENTIN 100 MG CAPSULE PO SCH (20:46)
[2022-09-24] MEDS: ONDANSETRON 4 MG/2 ML VIAL IV PRN (20:53)
[2022-09-25 05:10] LABS: Basophils % 0.3 % (0.0-0.8); Eosinophils # 0.1 10*3/uL (0.0-0.87); Eosinophils % 3.3 % (0.00-10.9); Hematocrit 23.6 VOL% (35.7-47.0); Hemoglobin 7.5 GM/DL (12.0-16.0); Immature Granulocytes % 0.6 %; Immature Granulocytes Absolute 0.02 #; Lymphocytes # 1.3 10*3/uL (1.4-4.0); Lymphocytes % 38.5 % (21.3-54.2); Mean Corpuscular HGB Conc 31.8 GM/DL (32-36); Mean Corpuscular Volume 106.8 FL (87-102); Mean Platelet Volume 10.6 FL (9.6-12.0); Monocytes # 0.2 10*3/uL (0.11-0.8); Monocytes % 5.9 % (1.7-12.7); Neutrophils % 51.4 % (38.7-73.9); Platelet Count 129 T/CUMM (130-400); Red Blood Count 2.21 MC/CUMM (3.8-5.5); Red Cell Distribution Width 15.9 % (9.3-17.3); White Blood Count 3.4 T/CUMM (4-12)
[2022-09-25 05:24] LABS: Calcium 8.1 MG/DL (8.5-10.1); Osmolality,Calculated 273.7 MOS/KG (273-304); Potassium 4.5 MMOL/L (3.5-5.1)
[2022-09-25] MEDS ORDERED: SODIUM CHLORIDE 0.9% 1,000 ML IV PRN (07:53)
[2022-09-25 08:08] LABS: PT Patient Result 68.6 SECS (10.1-12.1)
[2022-09-25 08:11] LABS: INR 7.2
[2022-09-25] MEDS: CALCIUM (CARBONATE)/VITAMIN D 600 MG-400 UNIT TABLET PO SCH ×2 (09:59→20:38)
[2022-09-25] MEDS: FERROUS SULFATE 325 MG TABLET PO SCH (09:59)
[2022-09-25] MEDS: POLYETHYLENE GLYCOL POWDER 17 GM PACK PO SCH (10:00)
[2022-09-25] MEDS: PANTOPRAZOLE 40 MG TABLET PO SCH (10:00)
[2022-09-25] MEDS: CYANOCOBALAMIN 500 MCG TABLET PO SCH (10:00)
[2022-09-25] MEDS: NAPROXEN 500 MG TABLET PO SCH ×2 (10:00→20:38)
[2022-09-25] MEDS: MEGESTROL 40 MG TABLET PO SCH ×2 (10:00→20:38)
[2022-09-25] MEDS: ASCORBIC ACID 500 MG TABLET PO SCH (10:00)
[2022-09-25] MEDS: AMIODARONE 200 MG TABLET PO SCH ×2 (10:00→20:38)
[2022-09-25] MEDS: MENTHOL/ZINC OXIDE OINT 71 GM JAR TOP SCH ×2 (10:02→20:38)
[2022-09-25] MEDS: traMADol 50 MG TABLET PO PRN (16:30)
[2022-09-25] MEDS ORDERED: TUBERCULIN SKIN TEST 0.1 ML SYRINGE INTRADERM ONE (16:32)
[2022-09-25 16:56] LABS: Hematocrit 31.6 VOL% (35.7-47.0); Hemoglobin 10.2 GM/DL (12.0-16.0)
[2022-09-25] MEDS: SIMVASTATIN 20 MG TABLET PO SCH (20:38)
[2022-09-25] MEDS: GABAPENTIN 100 MG CAPSULE PO SCH (20:38)
[2022-09-25] MEDS: NITROFURANTOIN MACRO/MONO 100 MG CAPSULE PO SCH (21:06)
[2022-09-26 05:17] LABS: Basophils % 0.2 % (0.0-0.8); Eosinophils # 0.2 10*3/uL (0.0-0.87); Eosinophils % 3.1 % (0.00-10.9); Hematocrit 33.3 VOL% (35.7-47.0); Hemoglobin 10.7 GM/DL (12.0-16.0); Immature Granulocytes % 0.4 %; Immature Granulocytes Absolute 0.02 #; Lymphocytes % 40.5 % (21.3-54.2); Mean Corpuscular HGB Conc 32.1 GM/DL (32-36); Mean Corpuscular Volume 102.1 FL (87-102); Mean Platelet Volume 10.6 FL (9.6-12.0); Monocytes # 0.3 10*3/uL (0.11-0.8); Monocytes % 5.9 % (1.7-12.7); Neutrophils % 49.9 % (38.7-73.9); Platelet Count 135 T/CUMM (130-400); Red Blood Count 3.26 MC/CUMM (3.8-5.5); Red Cell Distribution Width 18.3 % (9.3-17.3); White Blood Count 4.9 T/CUMM (4-12)
[2022-09-26 05:37] LABS: PT Patient Result 63.9 SECS (10.1-12.1)
[2022-09-26 05:43] LABS: Calcium 8.2 MG/DL (8.5-10.1); Osmolality,Calculated 266.2 MOS/KG (273-304); Potassium 4.7 MMOL/L (3.5-5.1)
[2022-09-26 06:01] LABS: INR 6.6
[2022-09-26] MEDS: ASCORBIC ACID 500 MG TABLET PO SCH (08:33)
[2022-09-26] MEDS: PANTOPRAZOLE 40 MG TABLET PO SCH (08:34)
[2022-09-26] MEDS: MEGESTROL 40 MG TABLET PO SCH (08:34)
[2022-09-26] MEDS: NITROFURANTOIN MACRO/MONO 100 MG CAPSULE PO SCH (08:34)
[2022-09-26] MEDS: NAPROXEN 500 MG TABLET PO SCH (08:34)
[2022-09-26] MEDS: CALCIUM (CARBONATE)/VITAMIN D 600 MG-400 UNIT TABLET PO SCH (08:34)
[2022-09-26] MEDS: AMIODARONE 200 MG TABLET PO SCH (08:34)
[2022-09-26] MEDS: CYANOCOBALAMIN 500 MCG TABLET PO SCH (08:34)
[2022-09-26] MEDS: MENTHOL/ZINC OXIDE OINT 71 GM JAR TOP SCH (08:35)
[2022-09-26] MEDS: FERROUS SULFATE 325 MG TABLET PO SCH (08:35)
[2022-09-26] MEDS: POLYETHYLENE GLYCOL POWDER 17 GM PACK PO SCH (08:35)
[2022-09-26] MEDS ORDERED: BACILLUS COAGULANS CAPLET PO SCH (09:00)
[2022-09-26 10:41] VITALS: BP 156/68
== END 2022-09-26 10:50 | disposition swing bed (61) | DRG 981 ==
LOC: EDUNIT# → EDBD → N.ED 07:53 → SUATTDRO 12:09 → N.EDINP 12:09 → N.2E 13:38
PROVIDERS: ADMIT Internal Medicine; ATTEND Internal Medicine